=== PATIENT | female | born 1990 | race Caucasian/White ===

== ENCOUNTER 2022-08-18 20:23 | Observation (INO) | payer OTHER, SELFPAY ==
--- NOTE | ~2022-08-18 | CT_ITS ---
EXAMINATION: CT HEAD WITHOUT CONTRAST CLINICAL INFORMATION: Severe vertigo COMPARISON: None. TECHNIQUE: Contiguous axial imaging was performed from the skull base to vertex without intravenous contrast. This CT examination was performed using dose optimization techniques as appropriate, variously including the following: * Automated exposure control * Adjustment of mA and/or kV according to patient size (this includes techniques or standardized protocols for targeted exams where dose is matched to indication/reason for exam; i.e. extremities or head) Use of iterative reconstruction technique DLP: 564 mGy-cm. FINDINGS: There is no evidence of acute intracranial hemorrhage or territorial infarction. No abnormal mass effect or midline shift is seen. Su to white matter differentiation is well preserved. No extra-axial fluid collections are identified. No hydrocephalus. No significant volume loss. There is no abnormal attenuation within the brain parenchyma. The osseous structures and soft tissues are normal. The mastoid air cells and visualized portions of the paranasal sinuses are well aerated. CT/CT head/brain wo IV con IMPRESSION: No acute intracranial pathology.
--- NOTE | ~2022-08-18 | MR_ITS ---
EXAMINATION: MRI OF THE BRAIN WITHOUT CONTRAST CLINICAL INFORMATION: CVA. COMPARISON: CT scan of the head earlier 08/19/2022. TECHNIQUE: MRI of the brain was obtained using routine sequences without contrast. FINDINGS: No diffusion abnormalities are identified to suggest an acute or subacute infarct. No mass effect or midline shift is seen. The ventricles and sulci are normal in size. Brain parenchymal signal is unremarkable. No extra-axial fluid collections are seen. The brainstem and cerebellum are normal. No pathologic magnetic susceptibility artifact is identified on the gradient refocused acquisition. The craniovertebral junction, marrow signal, and midline structures are normal. The major intracranial flow-voids at the level of the [place] are preserved. The dural venous sinus flow-voids are maintained. There are small lymph nodes in the parotid glands bilaterally. The mastoid air cells and the paranasal sinuses are well-aerated. MR/MR head/brain wo con IMPRESSION: 1. There are no acute bleeds or infarcts. No masses are demonstrated. Brain parenchymal signal is unremarkable.
[2022-08-18 21:03] VITALS: BP 128/91; PULSE 77; RESP 16; TEMP 36.6; O2SAT 100; BMI 19.7
--- NOTE | 2022-08-18 21:11 | ECG_ITS ---
Test Reason : DIZZINESS Blood Pressure : / mmHG Vent. Rate : 060 BPM Atrial Rate : 060 BPM P-R Int : 150 ms QRS Dur : 072 ms QT Int : 454 ms P-R-T Axes : 048 043 036 degrees QTc Int : 454 ms Normal sinus rhythm with sinus arrhythmia Normal ECG No previous ECGs available Referred By: Clarissa Colón Electronically Signed By:Yang Fernandez
--- OUTSIDE RECORDS SUMMARY | 2022-08-18 21:28 | XMS_ITS | Continuity of Care Document ---
Author Name Unknown Organization [facility] Lucien lt Address [address] [place] [address]- Care Team Providers Care Foundry Worker Name Role Phone Lela BONUS CLERKTierra Primary Care Physician [facility] Date[facility]s): 02/20/22 - 03/22/22 [facility] Adult [address] [place] [address]- Allergies, Adverse Reactions, Alerts Substance Reaction Severity Status codeine Active sulfADIAZINE Active Vicodin ES Active Immunizations Given and Recorded Vaccine Date Status Refusal Reason SARS-CoV-2 (COVID-19) mRNA-1273 vaccine 09/13/20 R ecorded SARS-CoV-2 (COVID-19) mRNA-1273 vaccine 08/20/20 R ecorded SARS-CoV-2 (COVID-19) mRNA-1273 vaccine 08/16/20 R ecorded SARS-CoV-2 (COVID-19) mRNA-1273 vaccine 07/21/20 R ecorded tetanus-diphtheria toxoids (Td) 05/21/19 Given influenza virus vaccine, inactivated 05/08/19 Daniel rded influenza virus vaccine, inactivated 05/05/15 Daniel rded influenza virus vaccine, inactivated 1 05/20/13 Gi davis Influenza Virus Vaccine (oldterm) 05/07/19 Recorde d FluLaval (oldterm) 03/10/12 Given Varicella Virus Vaccine 11/19/08 Given Menactra (oldterm) 10/17/07 Given Tet/Diphth/Acel, Pertussis (oldterm) 10/17/07 Give n Gardasil (oldterm) 10/06/07 Given Gardasil (oldterm) 01/16/07 Given Gardasil (oldterm) 09/27/06 Given hepatitis B pediatric vaccine 09/24/02 Given hepatitis B pediatric vaccine 09/23/01 Given hepatitis B pediatric vaccine 01/31/00 Given Measles/Mumps/Rubella Virus Vaccine 01/31/00 Given Measles/Mumps/Rubella Virus Vaccine 02/23/91 Given 1Result Comment: [05/20/2013] ORDERED BY TIERRA VOGEL. BONUS CLERK Medications Adderall XR 25 mg oral capsule, extended release 1 capsule = 25 mg, By Mouth, Daily in AM, DX: F90.9, # 30 capsule, 0 Refills, Maintenance, 03/22/2210:02:00 EST, CR Capsule, [facility] #[id number], 1 capsule By Mouth Daily in AM,x30 days,Instr:DX: F90.9, 164, cm, 02/01/22 8:51:00 EDT, Height Start Date: 03/22/22 Stop Date: 04/21/22 Status: Ordered Adderall XR 25 mg oral capsule, extended release 1 capsule = 25 mg, By Mouth, Daily in AM, for 30 days, DX: F90.9, # 30 capsule, 0 Refills, Hard Stop 03/23/22 20:23:00 EST, 02/21/22 20:23:00 EDT, CR Capsule, [facility] #[id number], 164, cm, 02/01/22 8:51:00 EDT, Height Start Date: 02/21/22 Stop Date: 03/23/22 Status: Ordered EpiPen 2-Janusz 0.3 mg injectable kit = 0.3 mg, Intramuscular, Once, as instructed may repeat if necessary, # 1 each, 0 Refills, Soft Stop, 05/21/19 9:12:00 EST, [facility] #[id number], 164, cm, 05/21/19 8:55:00 EST, Height Start Date: 05/21/19 Status: Ordered Valtrex 1 gm oral tablet 1 tablet = 1 Gm, By Mouth, Daily, for 90 days, # 90 tablet, 0 Refills, Acute 04/21/22 7:14:00 EST, 01/21/22 7:14:00 EDT, Tablet, [facility] #[id number], 164, cm, 10/26/21 11:15:00 EDT, Height Start Date: 01/21/22 Stop Date: 04/21/22 Status: Ordered Valtrex 1 gm oral tablet 1 tablet = 1 Gm, By Mouth, Daily, for 90 days, # 90 tablet, 0 Refills, Acute 06/14/22 13:29:00 EST,03/16/22 13:29:00 EST, Tablet, [facility] #[id number], 164, cm, 02/01/22 8:51:00 EDT, Height Start Date: 03/16/22 Stop Date: 06/14/22 Status: Ordered Vitamin B12 1000 mcg oral tablet 1 tablet = 1,000 mcg, By Mouth, Daily, # 90 tablet, 1 Refills, Maintenance, 02/01/22 9:06:00 EDT, Tablet, [facility] #[id number], 164, cm, 02/01/22 8:51:00 EDT, Height Start Date: 02/01/22 Status: Ordered Problem List Condition Confirmation Course Effective Dates Status H ealth Status Informant ADHD 1, 2 Confirmed Active Vitamin B12 deficiency Confirmed Active Developmental Dyslexia 3 Confirmed Active H/O angioedema Confirmed Active Herpes labialis Confirmed Active Lymphocytosis since 2010 Confirmed Active 1well documented pediatric chart 2dyslexia 3per pediatricain Social History Social History Type Response Smoking Status Never smoker entered on: 05/20/13 Sex Patient Care team information Care Team Personnel Name: Tierra Vogel NP Position: [facility] PCO Associate Professional Member Role: PCP Address: Address: [address] [place] [address]- Care Team Related Persons Name: HELEN NOBLES Address: home [address] [place] [address] Name: DRAGAN AMARO Address: home [address] [place] [address]
--- OUTSIDE RECORDS SUMMARY | 2022-08-18 21:28 | XMS_ITS | Continuity of Care Document ---
Author Name Unknown Organization [facility] Adult Address [address] [place] [address]- Care Team Providers Care Tip Length Checker Name Role Phone Lela Tierra FARRELL Primary Care Physician [facility] Date(s): 05/09/22 - 06/08/22 [facility] Adult [address] [place] [address]- Allergies, Adverse Reactions, Alerts Substance Reaction Severity [...] 1Result Comment: [05/20/2013] ORDERED BY TIERRA VOGEL. JOB COACH Medications Adderall XR 25 mg oral capsule, extended release 1 capsule = 25 mg, By Mouth, Daily in AM, DX: F90.9, # 30 capsule, 0 Refills, Maintenance, 05/21/2314:59:00 EST, CR Capsule, [facility] #[id number], 1 capsule By Mouth Daily in AM,x30 days,Instr:DX: F90.9, 164, cm, 02/01/22 8:51:00 EDT, Height Start Date: 05/21/22 Stop Date: 06/20/22 Status: Ordered EpiPen 2-Janusz 0.3 mg injectable kit = 0.3 mg, Intramuscular, Once, as instructed may repeat if necessary, # 1 each, 0 Refills, Soft Stop, 05/21/19 9:12:00 EST, [facility] #[id number], 164, cm, 05/21/19 8:55:00 EST, Height Start Date: 05/21/19 Status: Ordered Valtrex 1 gm oral tablet 1 tablet = 1 Gm, By Mouth, Daily, for 90 days, # 90 tablet, 0 Refills, Acute 06/14/22 13:29:00 EST,03/16/22 13:29:00 EST, Tablet, [facility] #[id number], 164, cm, 02/01/22 8:51:00 EDT, Height Start Date: 03/16/22 Stop Date: 06/14/22 Status: Ordered Vitamin B12 1000 mcg oral tablet 1 tablet = 1,000 mcg, By Mouth, Daily, # 90 tablet, 1 Refills, Maintenance, 05/15/22 10:58:00 EST, Tablet, [facility] #[id number], 164, cm, 02/01/22 8:51:00 EDT, Height Start Date: 05/15/22 Status: Ordered Problem List Condition Confirmation Course [...] Team Personnel Name: Tierra Vogel NP Position: [facility] PCO Associate Professional Member Role: PCP Address: Address: [address] [place] [address]- Care Team Related Persons Name: HELEN NOBLES Address: home [address] [place] [address] Name: DRAGAN AMARO Address: home [address] [place] [address]
--- OUTSIDE RECORDS SUMMARY | 2022-08-18 21:28 | XMS_ITS | Continuity of Care Document ---
Author Name Unknown Organization [facility] Address [address] [place] [address]- Care Team Providers Care Manager Call Name Role Phone Rafael PALACIO, Arik Santiago Primary Care Physician Encounter [facility] Date(s): 04/28/20 - 08/26/20 [facility] [address] [place] [address]- Attending Physician: Farheen Faustin Admitting Physician: Farheen Faustin Allergies, Adverse Reactions, Alerts Substance Reaction Severity Status codeine Active sulfADIAZINE Active Vicodin ES Active Immunizations Given and Recorded Vaccine Date Status Refusal Reason SARS-CoV-2 (COVID-19) mRNA-1273 vaccine 08/16/20 R ecorded tetanus-diphtheria toxoids (Td) 05/21/19 Given Influenza Virus Vaccine (oldterm) 05/07/19 Recorde d influenza virus vaccine, inactivated 05/05/15 Daniel rded influenza virus vaccine, inactivated 1 05/20/13 Gi davis FluLaval (oldterm) 03/10/12 Given Varicella Virus Vaccine [...] 02/23/91 Given 1Result Comment: [05/20/2013] ORDERED BY SIOBHAN JORGE. EQUIPMENT PROCESSER STORAGE Medications Adderall XR 25 mg oral capsule, extended release 1 capsule = 25 mg, By Mouth, Daily in AM, DX: F90.9, # 30 capsule, 0 Refills, Maintenance, 08/24/2116:54:00 EDT, CR Capsule, [facility] #[id number], 1 capsule By Mouth Daily in AM,x30 days,Instr:DX: F90.9, 08/25/20, 164, cm, 07/27/20 7:11:00 EDT... Start Date: 08/24/20 Stop Date: 09/23/20 Status: Ordered EpiPen 2-Janusz 0.3 mg injectable kit = 0.3 mg, Intramuscular, Once, as instructed may repeat if necessary, # 1 each, 0 Refills, Soft Stop, 05/21/19 9:12:00 EST, [facility] #[id number], 164, cm, 05/21/19 8:55:00 EST, Height Start Date: 05/21/19 Status: Ordered Problem List Condition Effective Dates Status Health Status Inform ant ADHD(Confirmed) 1, 2 Active Developmental Dyslexia(Confirmed) 3 Active H/O angioedema(Confirmed) Active Lymphocytosis since 2010(Confirmed) Active 1well documented pediatric chart 2dyslexia 3per pediatricain Social History Social History Type Response Smoking Status Never smoker entered on: 05/20/13 Sex
--- OUTSIDE RECORDS SUMMARY | 2022-08-18 21:28 | XMS_ITS | Continuity of Care Document ---
Author Name Unknown Organization [facility] Lucien Address [address] [place] [address]- Care Team Providers Care Flatbed Company Driver Name Role Phone Rafael PALACIO, Arik Santiago Primary Care Physician [facility] Date(s): 11/08/21 - 12/08/21 [facility] Adult [address] [place] [address]- Allergies, Adverse Reactions, Alerts Substance Reaction Severity [...] 1Result Comment: [05/20/2013] ORDERED BY SIOBHAN JORGE. HOT BOX OPERATOR Medications Adderall XR 25 mg oral capsule, extended release 1 capsule = 25 mg, By Mouth, Daily in AM, DX: F90.9, # 30 capsule, 0 Refills, Maintenance, 11/28/2211:00:00 EDT, CR Capsule, [facility] #[id number], 1 capsule By Mouth Daily in AM,x30 days,Instr:DX: F90.9, 164, cm, 10/26/21 11:15:00 EDT, Height Start Date: 11/27/21 Stop Date: 12/27/21 Status: Ordered EpiPen 2-Janusz 0.3 mg injectable kit = 0.3 mg, Intramuscular, Once, as instructed may repeat if necessary, # 1 each, 0 Refills, Soft Stop, 05/21/19 9:12:00 EST, [facility] #[id number], 164, cm, 05/21/19 8:55:00 EST, Height Start Date: 05/21/19 Status: Ordered Byron-3 Fish Oil = 1,000 mg, By Mouth, Daily, 0 Refills, Maintenance, 07/28/21 7:19:00 EDT Start Date: 07/28/21 Status: Ordered Valtrex 1 gm oral tablet 1 tablet = 1 Gm, By Mouth, Daily, for 90 days, # 90 tablet, 0 Refills, Acute 01/21/22 7:14:00 EDT, 10/23/21 7:14:00 EDT, Tablet, [facility] #[id number], 164, cm, 07/28/21 7:07:00 EDT, Height Start Date: 10/23/21 Stop Date: 01/21/22 Status: Ordered Zinc = 140 mg, By Mouth, Daily, 0 Refills, Maintenance, 07/28/21 7:19:00 EDT Start Date: 07/28/21 Status: Ordered Problem List Condition Effective Dates Status Health Status Inform ant ADHD(Confirmed) 1, 2 Active Vitamin B12 deficiency(Confirmed) Active Developmental Dyslexia(Confirmed) 3 Active H/O angioedema(Confirmed) Active Herpes labialis(Confirmed) Active Lymphocytosis since 2010(Confirmed) Active 1well documented pediatric chart 2dyslexia 3per pediatricain Social History Social History Type Response Smoking Status Never smoker entered on: 05/20/13 Sex
--- OUTSIDE RECORDS SUMMARY | 2022-08-18 21:28 | XMS_ITS | Continuity of Care Document ---
Author Name Unknown Organization [facility] Lucien lt Address [address] [place] [address]- Care Team Providers Care Clerk Operator Name Role Phone Rafael PALACIO, Arik Santiago Primary Care Physician [facility] Date(s): 01/16/21 - 01/23/21 [facility] Adult [address] [place] [address]- Attending Physician: Lela WELDING MACHINE OPERATOR ARC, Tierra Knowles Allergies, Adverse Reactions, Alerts Substance Reaction Severity Status codeine Active sulfADIAZINE Active Vicodin ES Active Immunizations Given and Recorded Vaccine Date Status Refusal Reason SARS-CoV-2 (COVID-19) mRNA-1273 vaccine 09/13/20 R ecorded SARS-CoV-2 (COVID-19) mRNA-1273 vaccine 08/16/20 [...] Given 1Result Comment: [05/20/2013] ORDERED BY TIERRA JORGE. WELDING MACHINE OPERATOR ARC Medications Adderall XR 25 mg oral capsule, extended release 1 capsule = 25 mg, By Mouth, Daily in AM, DX: F90.9, # 30 capsule, 0 Refills, Maintenance, 217:31:00 EDT, CR Capsule, [facility] #[id number], 1 capsule By Mouth Daily in AM,x30 days,Instr:DX: F90.9, 01/09/21, 164, cm, 07/27/20 7:11:00 EDT,... Start Date: 01/05/21 Stop Date: 02/04/21 Status: Ordered EpiPen 2-Janusz 0.3 mg injectable kit = 0.3 mg, Intramuscular, Once, as instructed may repeat if necessary, # 1 each, 0 Refills, Soft Stop, 05/21/19 9:12:00 EST, [facility] #[id number], 164, cm, 05/21/19 8:55:00 EST, Height Start Date: 05/21/19 Status: Ordered Vitamin B12 1000 mcg oral tablet 1 tablet = 1,000 mcg, By Mouth, Daily, # 90 tablet, 1 Refills, Maintenance, 01/17/21 13:16:00 EDT, Tablet, [facility] #[id number], Partial fill upon patient request if the prescription is for a schedule II opioid drug., 164, cm, 01/16/21 9:54:00... Start Date: 01/17/21 Status: Ordered Problem List Condition Effective Dates Status Health Status Inform ant ADHD(Confirmed) 1, 2 Active Developmental Dyslexia(Confirmed) 3 Active H/O angioedema(Confirmed) Active Herpes labialis(Confirmed) Active Lymphocytosis since 2010(Confirmed) Active 1well documented pediatric chart 2dyslexia 3per pediatricain Vital Signs Most recent to oldest [Reference Range]: 1 Height 164.00 cm (01/16/21 9:54 AM) Weight 53.0 kg (01/16/21 9:54 AM) Oxygen Saturation [94-100 %] 98 % (01/16/21 9:54 AM) Pulse Rate [55-90 bpm] 93 bpm *H* (01/16/21 9:54 AM) Body Mass Index [18.5-24.99] 19.71 (01/16/21 9:54 AM) Blood Pressure [90-138/55-84 mm Hg] 116/ 70mm Hg (01/16/21 9:54 AM) Respiratory Rate [16-30 br/min] 18 br/mi n (01/16/21 9:54 AM) Temperature [96.8-100.4 DegF] 98.6 DegF (01/16/21 9:54 AM) Mode of Delivery (Oxygen) Room air (01/16/21 9:54 AM) Blood pressure sites Arm, right (01/16/21 9:54 AM) Temperature Route Oral (01/16/21 9:54 AM) Weight Obtained Via Standing scale (01/16/21 9:54 AM) Social History Social History Type Response Smoking Status Never smoker entered on: 05/20/13 Sex
--- OUTSIDE RECORDS SUMMARY | 2022-08-18 21:28 | XMS_ITS | Continuity of Care Document ---
Author Name Unknown Organization [facility] Lucien lt Address [address] [place] [address]- Care Team Providers Care Manager Pharmaceutical Name Role Phone Rafael PALACIO, Arik Santiago Primary Care Physician Encounter [facility] Date(s): 01/11/21 - 02/10/21 [facility] Adult [address] [place] [address]- Allergies, Adverse Reactions, Alerts Substance Reaction Severity [...] 1Result Comment: [05/20/2013] ORDERED BY SIOBHAN JORGE. FILTER BED PLACER Medications Adderall XR 25 mg oral capsule, extended release 1 capsule = 25 mg, By Mouth, Daily in AM, DX: F90.9, # 30 capsule, 0 Refills, Maintenance, 219:10:00 EDT, CR Capsule, [facility] #[id number], 1 capsule By Mouth Daily in AM,x30 days,Instr:DX: F90.9, 02/08/21, 164, cm, 01/26/21 7:05:00 EDT,... Start Date: 02/06/21 Stop Date: 03/08/21 Status: Ordered EpiPen 2-Janusz 0.3 mg injectable kit = 0.3 mg, Intramuscular, Once, as instructed may repeat if necessary, # 1 each, 0 Refills, Soft Stop, 05/21/19 9:12:00 EST, [facility] #[id number], 164, cm, 05/21/19 8:55:00 EST, Height Start Date: 05/21/19 Status: Ordered Valtrex 1 gm oral tablet 1 tablet = 1 Gm, By Mouth, Daily, for 90 days, # 90 tablet, 0 Refills, Acute 04/26/21 7:14:00 EST, 01/26/21 7:14:00 EDT, Tablet, [facility] #[id number], 164, cm, 01/26/21 7:05:00 EDT, Height Start Date: 01/26/21 Stop Date: 04/26/21 Status: Ordered Vitamin B12 1000 mcg oral tablet 1 tablet = 1,000 mcg, By Mouth, Daily, # 90 tablet, 1 Refills, Maintenance, 01/17/21 13:16:00 EDT, Tablet, [facility] #[id number], Partial fill upon patient request if the [...]
--- OUTSIDE RECORDS SUMMARY | 2022-08-18 21:28 | XMS_ITS | Continuity of Care Document ---
Author Name Unknown Organization [facility] Lucien lt Address [address] [place] [address]- Care Team Providers Care Inspector Aluminum Boat Name Role Phone Rafael PALACIO, Arik Santiago Primary Care Physician [phone] [place] [id number] Date(s): 01/07/20 - 01/14/20 [facility] Adult [address] [place] [address]- [facility] Attending Physician: Wilbert FARRELL, Radha Morales Allergies, Adverse Reactions, Alerts Substance Reaction Severity Status codeine Active sulfADIAZINE Active Vicodin ES Active Immunizations Given and Recorded Vaccine Date Status Refusal Reason tetanus-diphtheria toxoids (Td) 05/21/19 Given Influenza Virus [...] 1Result Comment: [05/20/2013] ORDERED BY SIOBHAN JORGE. CORPORATE EVENTS DIRECTOR Medications Adderall XR 25 mg oral capsule, extended release 1 capsule = 25 mg, By Mouth, Daily in AM, DX: F90.9, # 30 capsule, 0 Refills, Maintenance, 12/22/2009:23:00 EDT, CR Capsule, [facility] #[id number], 1 capsule By Mouth Daily in AM,x30 days,Instr:DX: F90.9, 12/25/19, 164, cm, 10/14/19 8:21:00 EDT... Start Date: 12/23/19 Stop Date: 01/22/20 Status: Ordered EpiPen 2-Janusz 0.3 mg injectable kit See Instructions, Intramuscular Once may repeat if necessary, # 1 Doses, 0 Refills, Soft Stop, 10/15/16 16:38:24 Start Date: 10/15/16 Status: Ordered EpiPen 2-Janusz 0.3 mg injectable kit = 0.3 mg, Intramuscular, Once, as instructed may repeat if necessary, # 1 each, 0 Refills, Soft Stop, 05/21/19 9:12:00 EST, [facility] #[id number], 164, cm, 05/21/19 8:55:00 EST, Height Start Date: 05/21/19 Status: Ordered Problem List Condition Effective Dates Status Health Status Inform ant ADHD(Confirmed) 1, 2 Active Developmental Dyslexia(Confirmed) 3 Active H/O angioedema(Confirmed) Active Lymphocytosis since 2010(Confirmed) Active 1well documented pediatric chart 2dyslexia 3per pediatricain Vital Signs Most recent to oldest [Reference Range]: 1 Height 164.00 cm (01/07/20 9:44 AM) Weight 52.5 kg (01/07/20 9:44 AM) Oxygen Saturation [94-100 %] 99 % (01/07/20 9:44 AM) Pulse Rate [55-90 bpm] 87 bpm (01/07/20 9:44 AM) Body Mass Index [18.5-24.99] 19.52 (01/07/20 9:44 AM) Blood Pressure [90-138/55-84 mm Hg] 108/ 62mm Hg (01/07/20 9:44 AM) Respiratory Rate [16-30 br/min] 16 br/mi n (01/07/20 9:44 AM) Temperature [96.8-100.4 DegF] 98.0 DegF (01/07/20 9:44 AM) Mode of Delivery (Oxygen) Room air (01/07/20 9:44 AM) Blood pressure sites Arm, right (01/07/20 9:44 AM) Temperature Route Oral (01/07/20 9:44 AM) Weight Obtained Via Standing scale (01/07/20 9:44 AM) Social History Social History Type Response Smoking Status Never smoker entered on: 05/20/13 Sex
--- OUTSIDE RECORDS SUMMARY | 2022-08-18 21:28 | XMS_ITS | Continuity of Care Document ---
Author Name Unknown Organization [facility] Address [address] [place] [address]- Care Team Providers Care Steel Tester Name Role Phone Lela FEATHER TRIMMERTierra Primary Care Physician [phone] Encounter [facility] Date(s): 02/01/22 - 03/03/22 [facility] Adult [address] [place] [address]- Attending Physician: Admtr, Ar8 Admitting Physician: Admtr, Ar8 Referring Physician: Admtr, Ar8 Allergies, Adverse Reactions, Alerts Substance Reaction Severity [...] 1Result Comment: [05/20/2013] ORDERED BY TIERRA VOGEL. FEATHER TRIMMER Medications Adderall XR 25 mg oral capsule, extended release 1 capsule = 25 mg, By Mouth, Daily in AM, DX: F90.9, # 30 capsule, 0 Refills, Maintenance, 02/22/2220:23:00 EDT, CR Capsule, [facility] #[id number], 1 capsule By Mouth Daily in AM,x30 days,Instr:DX: F90.9, 164, cm, 02/01/22 8:51:00 EDT, Height Start Date: 02/21/22 Stop Date: 03/23/22 Status: Ordered EpiPen 2-Janusz 0.3 mg injectable kit = 0.3 mg, Intramuscular, Once, as instructed may repeat if necessary, # 1 each, 0 Refills, Soft Stop, 05/21/19 9:12:00 EST, [facility] #[id number], 164, cm, 05/21/19 8:55:00 EST, Height Start Date: 05/21/19 Status: Ordered Valtrex 1 gm oral tablet 1 tablet = 1 Gm, By Mouth, Daily, for 90 days, # 90 tablet, 0 Refills, Acute 04/21/22 7:14:00 EST, 01/21/22 7:14:00 EDT, Tablet, [facility] #[id number], 164, cm, 10/26/21 11:15:00 EDT, Height Start Date: 01/21/22 Stop Date: 04/21/22 Status: Ordered Vitamin B12 1000 mcg oral tablet 1 tablet = 1,000 mcg, By Mouth, Daily, # 90 tablet, 1 Refills, Maintenance, 02/01/22 9:06:00 EDT, Tablet, [facility] #[id number], 164, cm, 02/01/22 8:51:00 EDT, Height Start Date: 02/01/22 Status: Ordered Problem List Condition Confirmation Course Effective Dates Status H ealth Status Informant ADHD 1, 2 Confirmed Active Vitamin B12 deficiency Confirmed Active Developmental Dyslexia 3 Confirmed Active H/O angioedema Confirmed Active Herpes labialis Confirmed Active Lymphocytosis since 2010 Confirmed Active 1well documented pediatric chart 2dyslexia 3per pediatricain Procedures Procedure Date Related Diagnosis Body Site Status CT of abdomen and pelvis- he matoma right buttocks 1 03/04/19 Completed Reference (Outside) Laboratory 2 03/04/19 Completed 18.7x2.8x6.6cm lobular density in the subcutaneou fat of right buttocks consistent with hematoma 2WBC 4.3, RBC 4.15, hgb 13.9, hct 38.6, plt 315, NA 141, K 4.3, gluc 65, BUN 13, creat 0.76, neg hcg Social History Social History Type Response Smoking Status Never smoker entered on: 05/20/13 Sex Note * Event Display: Non Lab Results Authored Date: Patient Care team information Care Team Personnel Name: Tierra Vogel NP Position: [facility] PCO Associate Professional Member Role: PCP Address: Address: [address] [place] [address]- Care Team Related Persons Name: HELEN NOBLES Address: home [address] [place] [address] Name: DRAGAN AMARO Address: home [address] [place] [address]
--- OUTSIDE RECORDS SUMMARY | 2022-08-18 21:28 | XMS_ITS | Continuity of Care Document ---
Author Name Unknown Organization [facility] Luc[facility] lt Address [address] [place] [address]- Care Team Providers Care Postulant Name Role Phone Lela HOUSE CLEANERTierra Primary Care Physician [facility] Date(s): 03/22/22 - 04/21/22 [facility] Adult [address] [place] [address]- Allergies, Adverse Reactions, Alerts Substance Reaction Severity [...] 1Result Comment: [05/20/2013] ORDERED BY TIERRA VOGEL. HOUSE CLEANER Medications Adderall XR 25 mg oral capsule, extended release 1 capsule = 25 mg, By Mouth, Daily in AM, DX: F90.9, # 30 capsule, 0 Refills, Maintenance, 03/22/2210:02:00 EST, CR Capsule, [facility] #[id number], 1 capsule By Mouth Daily in AM,x30 days,Instr:DX: F90.9, 164, cm, 02/01/22 8:51:00 EDT, Height Start Date: 03/22/22 Stop Date: 04/21/22 Status: Ordered EpiPen 2-Janusz 0.3 mg injectable kit = 0.3 mg, Intramuscular, Once, as instructed may repeat if necessary, # 1 each, 0 Refills, Soft Stop, 05/21/19 9:12:00 EST, [facility] #[id number], 164, cm, 05/21/19 8:55:00 EST, Height Start Date: 05/21/19 Status: Ordered Valtrex 1 gm oral tablet 1 tablet = 1 Gm, By Mouth, Daily, for 90 days, # 90 tablet, 0 Refills, Acute 06/14/22 13:29:00 EST,03/16/22 13:29:00 EST, Tablet, [facility] #[id number], 164, cm, 02/01/22 8:51:00 EDT, Height Start Date: 03/16/22 Stop Date: 06/14/22 Status: Ordered Vitamin B12 1000 mcg oral tablet 1 tablet = 1,000 mcg, By Mouth, Daily, # 90 tablet, 1 Refills, Maintenance, 02/01/22 9:06:00 EDT, Tablet, [facility] #[id number], 164, cm, 02/01/22 8:51:00 EDT, Height Start [...] Associate Professional Member Role: PCP Address: Address: [address] [place] [address]- [place] Care Team Related Persons Name: HELEN NOBLES Address: home [address] [place] [address] Name: DRAGAN AMARO Address: home [address] [place] [address]
--- OUTSIDE RECORDS SUMMARY | 2022-08-18 21:29 | XMS_ITS | Continuity of Care Document ---
Author Name Unknown Organization [facility] Lucien lt Address [address] [place] [id number]- Care Team Providers Care Refinery Operator Alkylation Name Role Phone Rafael PALACIO, Arik Santiago Primary Care Physician [phone] [place] [facility] [place] 02[place]11/20 [facility] Adult [address] [place] [address]- [place] Encounter Diagnosis Mouth sores(Discharge Diagnosis) - 02/04/20 Stye(Discharge Diagnosis) - 02/04/20 Attending Physician: Coreen Saravia NP Referring Physician: Rafael PALACIO, Arik Santiago Allergies, Adverse Reactions, Alerts Substance Reaction Severity [...] Virus Vaccine 01/31/00 Given Measles/Mumps/Rubella Virus Vaccine 11/4/91 Given 1Result Comment: [05/20/2013] ORDERED BY SIOBHAN JORGE. COMPUTER SALESPERSON RETAIL Medications Adderall XR 25 mg oral capsule, extended release 1 capsule = 25 mg, By Mouth, Daily in AM, DX: F90.9, # 30 capsule, 0 Refills, Maintenance, 01/19/2014:06:00 EDT, CR Capsule, [id number], 1 capsule By Mouth Daily in AM,x30 days,Instr:DX: F90.9, 01/24/20, 164, cm, 01/07/20 9:44:00 EDT, Height Start Date: 01/20/20 Stop Date: 02/19/20 Status: Ordered EpiPen 2-Janusz 0.3 mg injectable kit See Instructions, Intramuscular Once may repeat if necessary, # 1 Doses, 0 Refills, Soft Stop, 10/15/16 16:38:24 Start Date: 10/15/16 Status: Ordered EpiPen 2-Janusz 0.3 mg injectable kit = 0.3 mg, Intramuscular, Once, as instructed may repeat if necessary, # 1 each, 0 Refills, Soft Stop, 05/21/19 9:12:00 EST, [facility] #[id number], 164, cm, 05/21/19 8:55:00 EST, Height Start Date: 05/21/19 Status: Ordered Problem List Condition Effective Dates Status Health Status Inform ant ADHD(Confirmed) 1, 2 Active Developmental Dyslexia(Confirmed) 3 Active H/O angioedema(Confirmed) Active Lymphocytosis since 2010(Confirmed) Active 1well documented pediatric chart 2dyslexia 3per pediatricain Diagnosis Diagnosis Type Effective Dates Health Status Clini jessica Service Informant Mouth sores Discharge Diagnosis 02/04/20 Stye Discharge Diagnosis 02/04/20 Vital Signs Most recent to oldest [Reference Range]: 1 Height 164.00 cm (02/04/20 9:18 AM) Social History Social History Type Response Smoking Status Never smoker entered on: 05/20/13 Sex
--- OUTSIDE RECORDS SUMMARY | 2022-08-18 21:29 | XMS_ITS | Continuity of Care Document ---
Author Name Unknown Organization [facility] Lucien lt Address [address] [place] [address]- Care Team Providers Care Bush And Vine Farmer Fruit Crops Name Role Phone Lela Tierra FARRELL Primary Care Physician [phone] Encounter [facility] Date(s): 04/19/22 - 05/19/22 [facility] Adult [address] [place] [address]- Allergies, Adverse Reactions, Alerts Substance Reaction Severity [...] 1Result Comment: [05/20/2013] ORDERED BY TIERRA VOGEL. SENIOR IT ENGINEER Medications Adderall XR 25 mg oral capsule, extended release 1 capsule = 25 mg, By Mouth, Daily in AM, DX: F90.9, # 30 capsule, 0 Refills, Maintenance, 04/24/2311:31:00 EST, CR Capsule, [facility] #[id number], 1 capsule By Mouth Daily in AM,x30 days,Instr:DX: F90.9, 164, cm, 02/01/22 8:51:00 EDT, Height Start Date: 04/24/22 Stop Date: 05/24/22 Status: Ordered EpiPen 2-Janusz 0.3 mg injectable kit = 0.3 mg, Intramuscular, Once, as instructed may repeat if necessary, # 1 each, 0 Refills, Soft Stop, 05/21/19 9:12:00 EST, [facility] #[id number], 164, cm, 05/21/19 8:55:00 EST, Height Start Date: 05/21/19 Status: Ordered Valtrex 1 gm oral tablet 1 tablet = 1 Gm, By Mouth, Daily, for 90 days, # 90 tablet, 0 Refills, Acute 06/14/22 13:29:00 EST,03/16/22 13:29:00 EST, Tablet, [facility] #[id number], 164, cm, 02/01/22 8:51:00 EDT, Height Start Date: 03/16/22 Stop Date: 06/14/22 Status: Ordered Vitamin B12 1000 mcg oral tablet 1 tablet = 1,000 mcg, By Mouth, Daily, # 90 tablet, 1 Refills, Maintenance, 05/15/22 10:58:00 EST, Tablet, [facility] #[id number], 164, cm, 02/01/22 8:51:00 EDT, Height Start [...] Associate Professional Member Role: PCP Address: Address: [address] [place] [address]- Care Team Related Persons Name: HELEN NOBLES Address: home [address] [place] [address] Name: DRAGAN AMARO Address: home [address] [place] [address]
--- OUTSIDE RECORDS SUMMARY | 2022-08-18 21:29 | XMS_ITS | Continuity of Care Document ---
Author Name Unknown Organization [facility] Primary Car e Jeffers Address [address] [place] [address]- Care Team Providers Care Toll Patrolman Name Role Phone Rafael PALACIO, Arik Santiago Primary Care Physician [phone] [facility] Date(s): 07/17/21 - 08/16/21 [facility] [address] [place] [address]- Allergies, Adverse Reactions, Alerts Substance Reaction Severity [...] 1Result Comment: [05/20/2013] ORDERED BY SIOBHAN JORGE. TOURIST INFORMATION ASSISTANT Medications Adderall XR 25 mg oral capsule, extended release 1 capsule = 25 mg, By Mouth, Daily in AM, DX: F90.9, # 30 capsule, 0 Refills, Maintenance, :57:00 EDT, CR Capsule, [facility] #[id number], 1 capsule By Mouth Daily in AM,x30 days,Instr:DX: F90.9, 164, cm, 01/26/21 7:05:00 EDT, Height Start Date: 08/02/21 Stop Date: 09/01/21 Status: Ordered EpiPen 2-Janusz 0.3 mg injectable kit = 0.3 mg, Intramuscular, Once, as instructed may repeat if necessary, # 1 each, 0 Refills, Soft Stop, 05/21/19 9:12:00 EST, [facility] #[id number], 164, cm, 05/21/19 8:55:00 EST, Height Start Date: 05/21/19 Status: Ordered erythromycin 0.5% ophthalmic ointment 0.5 inches, Eye, Left, 4 times a day, for 5 days, follow-up with your eye doctor if not better in 5days, # 3.5 Gm, 0 Refills, Acute 08/20/21 14:17:00 EDT, 08/15/21 14:17:00 EDT, Ophth Ointment, [facility] #[id number], 0.5 inches Eye, Left 4 time... Start Date: 08/15/21 Stop Date: 08/20/21 Status: Ordered [place]-3 Fish Oil = 1,000 mg, By Mouth, Daily, 0 Refills, Maintenance, 07/28/21 7:19:00 EDT Start Date: 07/28/21 Status: Ordered Valtrex 1 gm oral tablet 1 tablet = 1 Gm, By Mouth, Daily, for 90 days, # 90 tablet, 0 Refills, Acute 10/23/21 7:14:00 EDT, 07/25/21 7:14:00 EDT, Tablet, [facility] #[id number], 164, cm, 01/26/21 7:05:00 EDT, Height Start Date: 07/25/21 Stop Date: 10/23/21 Status: Ordered Zinc = 140 mg, By [...]
--- OUTSIDE RECORDS SUMMARY | 2022-08-18 21:29 | XMS_ITS | Continuity of Care Document ---
Author Name Unknown Organization [facility] Lucien Address [address] [place] [address]- Care Team Providers Care Oceanographer Geological Name Role Phone Rafael PALACIO, Arik Santiago Primary Care Physician Encounter [facility] Date(s): 06/16/21 - 07/16/21 [facility] Adult [address] [place] [address]- Allergies, Adverse Reactions, Alerts Substance Reaction Severity [...] 1Result Comment: [05/20/2013] ORDERED BY SIOBHAN JORGE. WORKERS COMPENSATION CLAIMS SPECIALIST Medications Adderall XR 25 mg oral capsule, extended release 1 capsule = 25 mg, By Mouth, Daily in AM, DX: F90.9, # 30 capsule, 0 Refills, Maintenance, 229:57:00 EDT, CR Capsule, [facility] #[id number], 1 capsule By Mouth Daily in AM,x30 days,Instr:DX: F90.9, 164, cm, 01/26/21 7:05:00 EDT, Height Start Date: 07/03/21 Stop Date: 08/02/21 Status: Ordered EpiPen 2-Janusz 0.3 mg injectable kit = 0.3 mg, Intramuscular, Once, as instructed may repeat if necessary, # 1 each, 0 Refills, Soft Stop, 05/21/19 9:12:00 EST, [facility] #[id number], 164, cm, 05/21/19 8:55:00 EST, Height Start Date: 05/21/19 Status: Ordered fluconazole 150 mg oral tablet 1 tablet = 150 mg, By Mouth, Once, # 1 tablet, 0 Refills, Soft Stop, 06/16/21 10:04:00 EST, [facility] #[id number], Partial fill upon patient request if the prescription is for a schedule II opioid drug., 164, cm, 01/26/21 7:05:00 EDT, He... Start Date: 06/16/21 Status: Ordered Valtrex 1 gm oral tablet 1 tablet = 1 Gm, By Mouth, Daily, for 90 days, # 90 tablet, 0 Refills, Acute 07/25/21 7:14:00 EDT, 04/26/21 7:14:00 EST, Tablet, [facility] #[id number], 164, cm, 01/26/21 7:05:00 EDT, Height Start Date: 04/26/21 Stop Date: 07/25/21 Status: Ordered Valtrex 1 gm oral tablet 1 tablet = 1 Gm, By Mouth, Daily, for 90 days, # 90 tablet, 0 Refills, Acute 10/23/21 7:14:00 EDT, 07/25/21 7:14:00 EDT, Tablet, [facility] #[id number], 164, cm, 01/26/21 7:05:00 EDT, Height Start Date: 07/25/21 Stop Date: 10/23/21 Status: Ordered Vitamin B12 1000 mcg oral tablet 1 tablet = 1,000 mcg, By Mouth, Daily, # 90 tablet, 1 Refills, Maintenance, 01/17/21 13:16:00 EDT, Tablet, [facility] #[id number], Partial fill upon patient request if the [...]
--- OUTSIDE RECORDS SUMMARY | 2022-08-18 21:29 | XMS_ITS | Continuity of Care Document ---
Author Name Unknown Organization [facility] Lucien lt Address [address] [place] [address]- Care Team Providers Care Rod Greaser Name Role Phone Rafael PALACIO, Arik Santiago Primary Care Physician En[place] [facility] [place] Date(s): 01/26/21 - 02/02/21 [facility] Adult [address] [place] [address]- Encounter Diagnosis ADHD(Discharge Diagnosis) - 01/26/21 Herpes labialis(Discharge Diagnosis) - 01/26/21 Vitamin B12 deficiency(Discharge Diagnosis) - 01/26/21 Attending Physician: Lela FARRELL, Tierra Knowles Allergies, Adverse Reactions, Alerts Substance [...] Given Gardasil (oldterm) 01/16/07 Given Gardasil (oldterm) 6/8/07 Given hepatitis B pediatric vaccine 09/24/02 Given hepatitis B pediatric vaccine 09/23/01 Given hepatitis B pediatric vaccine 01/31/00 Given Measles/Mumps/Rubella Virus Vaccine 01/31/00 Given Measles/Mumps/Rubella Virus Vaccine 02/23/91 Given 1Result Comment: [05/20/2013] ORDERED BY TIERRA JORGE. INTERVENTIONAL CARDIOLOGIST Medications Adderall XR 25 mg oral capsule, extended release 1 capsule = 25 mg, By Mouth, Daily in AM, DX: F90.9, # 30 capsule, 0 Refills, Maintenance, :31:00 EDT, CR Capsule, [facility] #[id number], 1 capsule By Mouth Daily in AM,x30 days,Instr:DX: F90.9, 01/09/21, 164, cm, 07/27/20 7:11:00 EDT,... Start Date: 01/05/21 Stop Date: 02/04/21 Status: Ordered EpiPen 2-Janusz 0.3 mg injectable kit = 0.3 mg, Intramuscular, Once, as instructed may repeat if necessary, # 1 each, 0 Refills, Soft Stop, 05/21/19 9:12:00 EST, [facility] #[id number], 164, cm, 05/21/19 8:55:00 EST, Height Start Date: 05/21/19 Status: Ordered Valtrex 1 gm oral tablet 1 tablet = 1 Gm, By Mouth, Daily, for 90 days, # 90 tablet, 0 Refills, Acute 04/26/21 7:14:00 EST, 01/26/21 7:14:00 EDT, Tablet, [facility] #[id number], 164, cm, 01/26/21 7:05:00 EDT, Height Start Date: 01/26/21 Stop Date: 04/26/21 Status: Ordered Vitamin B12 1000 mcg oral tablet 1 tablet = 1,000 mcg, By Mouth, Daily, # 90 tablet, 1 Refills, Maintenance, 01/17/21 13:16:00 EDT, Tablet, [facility] #[id number], Partial fill upon patient request if the [...] Diagnosis Diagnosis Type Effective Dates Health Status Clinical Service Informant ADHD Discharge Diagnosis 01/26/21 Herpes labialis Discharge Diagnosis 01/26/21 Vitamin B12 deficiency Discharge Diagnosis 01/26/21 Vital Signs Most recent to oldest [Reference Range]: 1 Height 164.00 cm (01/26/21 7:05 AM) Weight 54.6 kg (01/26/21 7:05 AM) Oxygen Saturation [94-100 %] 99 % (01/26/21 7:05 AM) Pulse Rate [55-90 bpm] 85 bpm (01/26/21 7:05 AM) Body Mass Index [18.5-24.99] 20.3 (01/26/21 7:05 AM) Blood Pressure [90-138/55-84 mm Hg] 112/ 68mm Hg (01/26/21 7:05 AM) Respiratory Rate [16-30 br/min] 16 br/mi n (01/26/21 7:05 AM) Temperature [96.8-100.4 DegF] 97.9 DegF (01/26/21 7:05 AM) Mode of Delivery (Oxygen) Room air (01/26/21 7:05 AM) Blood pressure sites Arm, right (01/26/21 7:05 AM) Temperature Route Oral (01/26/21 7:05 AM) Weight Obtained Via Standing scale (01/26/21 7:05 AM) Social History Social History Type Response Smoking Status Never smoker entered on: 05/20/13 Sex
--- OUTSIDE RECORDS SUMMARY | 2022-08-18 21:29 | XMS_ITS | Continuity of Care Document ---
Author Name Unknown Organization [facility] Lucien lt Address [address] [place] [address]- Care Team Providers Care Rn Provider Relations Name Role Phone Arik Hall MD Primary Care Physician [phone] [place] [facility] [place]19 [facility] Adult [address] [place] [address]- [facility] Encounter Diagnosis Idiopathic angioedema(Discharge Diagnosis) - 05/21/19 Attending Physician: Arik Hall MD Allergies, Adverse Reactions, Alerts Substance Reaction Severity [...] 1Result Comment: [05/20/2013] ORDERED BY SIOBHAN JORGE. INSURANCE HEALTHCARE CONSULTANT Medications Adderall XR 25 mg oral capsule, extended release 1 capsule = 25 mg, By Mouth, Daily in AM, DX: F90.9, # 30 capsule, 0 Refills, Maintenance, 05/21/2012:36:00 EST, CR Capsule, [facility] #[id number], 1 capsule By Mouth Daily in AM,x30 days,Instr:DX: F90.9, 05/27/19, 164, cm, 05/21/19 8:55:00 EST... Start Date: 05/21/19 Stop Date: 06/20/19 Status: Ordered Monika Allergy 60 mg oral tablet 1 tablet = 60 mg, By Mouth, 2 times a day, # 60 tablet, 5 Refills, Maintenance, 10/15/16 16:36:51, Tablet Start Date: 10/15/16 Status: Ordered EpiPen 2-Janusz 0.3 mg injectable kit See Instructions, Intramuscular Once may repeat if necessary, # 1 Doses, 0 Refills, Soft Stop, 10/15/16 16:38:24 Start Date: 10/15/16 Status: Ordered EpiPen 2-Janusz 0.3 mg injectable kit = 0.3 mg, Intramuscular, Once, as instructed may repeat if necessary, # 1 each, 0 Refills, Soft Stop, 05/21/19 9:12:00 EST, [facility] #[id number], 164, cm, 05/21/19 8:55:00 EST, Height Start Date: 05/21/19 Status: Ordered ethinyl estradiol-levonorgestrel 30 mcg-0.15 mg oral tablet 1 tablet, By Mouth, Daily, # 28 tablet, 11 Refills, Maintenance, 04/04/15 16:21:12, Tablet, 1 tablet By Mouth Daily Start Date: 04/04/15 Stop Date: 04/04/16 Status: Ordered Problem List Condition Effective Dates Status Health Status Inform ant ADHD(Confirmed) 1, 2 Active Developmental Dyslexia(Confirmed) 3 Active Idiopathic angioedema(Confirmed) Active 1well documented pediatric chart 2dyslexia 3per pediatricain Diagnosis Diagnosis Type Effective Dates Health Status Clinical Service Informant Idiopathic angioedema Discharge Diagnosis 05/21/19 Vital Signs Most recent to oldest [Reference Range]: 1 Height 164.00 cm (05/21/19 8:55 AM) Weight 53.3 kg (05/21/19 8:55 AM) Oxygen Saturation [94-100 %] 99 % (05/21/19 8:55 AM) Pulse Rate [55-90 bpm] 100 bpm *H* (05/21/19 8:55 AM) Body Mass Index [18.5-24.99] 19.82 (05/21/19 8:55 AM) Blood Pressure [90-138/55-84 mm Hg] 104/ 76mm Hg (05/21/19 8:55 AM) Respiratory Rate [16-30 br/min] 16 br/mi n (05/21/19 8:55 AM) Temperature [96.8-100.4 DegF] 98.0 DegF (05/21/19 8:55 AM) Blood pressure sites Arm, left (05/21/19 8:55 AM) Temperature Route Oral (05/21/19 8:55 AM) Social History Social History Type Response Smoking Status Never smoker entered on: 05/20/13 Sex
--- OUTSIDE RECORDS SUMMARY | 2022-08-18 21:29 | XMS_ITS | Continuity of Care Document ---
Author Name Unknown Organization [facility] Lucien lt Address [address] [place] [address]- Care Team Providers Care Sr. Manager Name Role Phone Tierra Vogel NP Primary Care Physician Encounter [facility] [place] Date(s): 02/01/22 - 02/08/22 [facility] Adult [address] [place] [address]- Encounter Diagnosis ADHD(Discharge Diagnosis) - 02/01/22 Vitamin B12 deficiency(Discharge Diagnosis) - 02/01/22 Attending Physician: Tierra Vogel NP Allergies, Adverse Reactions, Alerts Substance Reaction Severity [...] 1Result Comment: [05/20/2013] ORDERED BY TIERRA VOGEL. OR FIRST ASSIST REGISTERED NURSE Medications Adderall XR 25 mg oral capsule, extended release 1 capsule = 25 mg, By Mouth, Daily in AM, DX: F90.9, # 30 capsule, 0 Refills, Maintenance, :03:00 EDT, CR Capsule, [facility] #[id number], 1 capsule By Mouth Daily in AM,x30 days,Instr:DX: F90.9, 164, cm, 10/26/21 11:15:00 EDT, Height Start Date: 01/23/22 Stop Date: 02/22/22 Status: Ordered EpiPen 2-Janusz 0.3 mg injectable kit = 0.3 mg, Intramuscular, Once, as instructed may repeat if necessary, # 1 each, 0 Refills, Soft Stop, 05/21/19 9:12:00 EST, [facility] #[id number], 164, cm, 05/21/19 8:55:00 EST, Height Start Date: 05/21/19 Status: Ordered Valtrex 1 gm oral tablet 1 tablet = 1 Gm, By Mouth, Daily, for 90 days, # 90 tablet, 0 Refills, Acute 04/21/22 7:14:00 EST, 01/21/22 7:14:00 EDT, Tablet, [facility] #[id number], 164, cm, 10/26/21 11:15:00 EDT, Height Start Date: 01/21/22 Stop Date: 04/21/22 Status: Ordered Vitamin B12 1000 mcg oral tablet 1 tablet = 1,000 mcg, By Mouth, Daily, # 90 tablet, 1 Refills, Maintenance, 02/01/22 9:06:00 EDT, Tablet, [facility] #[id number], 164, cm, 02/01/22 8:51:00 EDT, Height Start [...] Status Clinical Service Informant ADHD Discharge Diagnosis 02/01/22 Vitamin B12 deficiency Discharge Diagnosis 02/01/22 Vital Signs Most recent to oldest [Reference Range]: 1 Height 164.00 cm (02/01/22 8:51 AM) Weight 54.2 kg (02/01/22 8:51 AM) Oxygen Saturation [94-100 %] 98 % (02/01/22 8:51 AM) Pulse Rate [55-90 bpm] 90 bpm (02/01/22 8:51 AM) Body Mass Index [18.5-24.99 kg/m2] 20.15 kg/m2 (02/01/22 8:51 AM) Blood Pressure [90-138/55-84 mm Hg] 128/ 80mm Hg (02/01/22 8:51 AM) Mode of Delivery (Oxygen) Room air (02/01/22 8:51 AM) Blood pressure sites Arm, left (02/01/22 8:51 AM) Weight Obtained Via Standing scale (02/01/22 8:51 AM) Social History Social History Type Response Smoking Status Never smoker entered on: 05/20/13 Sex Patient Care team information Personnel Name: Tierra Vogel NP Address: Address: [address] [place] [address]
--- OUTSIDE RECORDS SUMMARY | 2022-08-18 21:29 | XMS_ITS | Continuity of Care Document ---
Author Name Unknown Organization [facility] Lucien Address [address] [place] [address]- Care Team Providers Care Culture Manager Name Role Phone Rafael PALACIO, Arik Santiago Primary Care Physician [facility] Date(s): 10/24/21 - 11/23/21 [facility] Adult [address] [place] [address]- Allergies, Adverse Reactions, Alerts Substance Reaction Severity [...] 1Result Comment: [05/20/2013] ORDERED BY SIOBHAN JORGE. CLAIMS DIRECTOR Medications Adderall XR 25 mg oral capsule, extended release 1 capsule = 25 mg, By Mouth, Daily in AM, DX: F90.9, # 30 capsule, 0 Refills, Maintenance, 10/26/2213:20:00 EDT, CR Capsule, [facility] #[id number], 1 capsule By Mouth Daily in AM,x30 days,Instr:DX: F90.9, 164, cm, 10/26/21 11:15:00 EDT, Height Start Date: 10/26/21 Stop Date: 11/25/21 Status: Ordered EpiPen 2-Janusz 0.3 mg injectable kit = 0.3 mg, Intramuscular, Once, as instructed may repeat if necessary, # 1 each, 0 Refills, Soft Stop, 05/21/19 9:12:00 EST, [facility] #[id number], 164, cm, 05/21/19 8:55:00 EST, Height Start Date: 05/21/19 Status: Ordered [place]-3 Fish Oil = 1,000 mg, By Mouth, Daily, 0 Refills, Maintenance, 07/28/21 7:19:00 EDT Start Date: 07/28/21 Status: Ordered Valtrex 1 gm oral tablet 1 tablet = 1 Gm, By Mouth, Daily, for 90 days, # 90 tablet, 0 Refills, Acute 01/21/22 7:14:00 EDT, 10/23/21 7:14:00 EDT, Tablet, [facility] #[id number], 164, cm, 07/28/21 7:07:00 EDT, Height Start [...]
--- OUTSIDE RECORDS SUMMARY | 2022-08-18 21:29 | XMS_ITS | Continuity of Care Document ---
Author Name Unknown Organization [facility] Lucien lt Address [address] [place] [address]- Care Team Providers Care Scrap Wheeler Name Role Phone Rafael PALACIO, Arik Santiago Primary Care Physician [facility] Date(s): 01/11/20 - 02/10/20 [facility] Adult [address] [place] [address]- [facility] Allergies, Adverse Reactions, Alerts Substance Reaction Severity [...] 1Result Comment: [05/20/2013] ORDERED BY SIOBHAN JORGE. SLUDGE CONTROL OPERATOR Medications Adderall XR 25 mg oral [...] 0 Refills, Soft Stop, 05/21/19 9:12:00 EST, [facility] #[id number], 164, cm, 05/21/19 8:55:00 EST, Height Start Date: 05/21/19 Status: Ordered Lidocaine Viscous 2% solution 5 mL = 0.1 Gm, Swish and Spit, 3 times a day, PRN as needed for mouth sore pain, for 7 days, # 180 mL, 0 Refills, Acute 02/11/20 9:54:00 EDT, 02/04/20 9:54:00 EDT, [id number], Please mix 60mLof viscous Lidocaine 2% with 60mL of diphenhydramin... Start Date: 02/04/20 Stop Date: 02/11/20 Status: Ordered polymyxin B-trimethoprim ophthalmic 27366 u-1 mg/ml solution See Instructions, 1 drops affect eye 4 times a day 5 days, # 5 mL, 0 Refills, Acute 02/11/20 9:57:00 EDT, 02/04/20 9:57:00 EDT, [id number], 1 drops affect eye 4 times a day 5 days, 164, cm, 02/04/20 9:18:00 EDT, Height Start Date: 02/04/20 Stop Date: 02/11/20 Status: Ordered Problem List Condition Effective Dates Status Health Status Inform ant ADHD(Confirmed) 1, 2 Active Developmental Dyslexia(Confirmed) 3 Active H/O angioedema(Confirmed) Active Lymphocytosis since 2010(Confirmed) Active 1well documented pediatric chart 2dyslexia 3per pediatricain Social History Social History Type Response Smoking Status Never smoker entered on: 05/20/13 Sex
--- OUTSIDE RECORDS SUMMARY | 2022-08-18 21:29 | XMS_ITS | Continuity of Care Document ---
Author Name Unknown Organization [facility] Lucien lt Address [address] [place] [address]- Care Team Providers Care Print Shop Chief Clerk Name Role Phone Rafael PALACIO, Arik Santiago Primary Care Physician [facility] Date(s): 07/26/20 - 08/25/20 [facility] Adult [address] [place] [address]- Allergies, Adverse Reactions, Alerts Substance Reaction Severity [...] Given 1Result Comment: [05/20/2013] ORDERED BY SIOBHAN ANIA. SOAKER SODA WORKER Medications Adderall XR 25 mg oral capsule, extended release 1 capsule = 25 mg, By Mouth, Daily in AM, DX: F90.9, # 30 capsule, 0 Refills, Maintenance, 08/24/2116:54:00 EDT, CR Capsule, [facility] #[id number], 1 capsule By Mouth Daily in AM,x30 days,Instr:DX: F90.9, 08/25/20, 164, cm, 07/27/20 7:11:00 EDT... Start Date: 08/24/20 Stop Date: 09/23/20 Status: Ordered EpiPen 2-Janusz 0.3 mg injectable kit = 0.3 mg, Intramuscular, Once, as instructed may repeat if necessary, # 1 each, 0 Refills, Soft Stop, 05/21/19 9:12:00 EST, [facility] #[id number], 164, cm, 05/21/19 8:55:00 EST, Height Start [...]
--- OUTSIDE RECORDS SUMMARY | 2022-08-18 21:29 | XMS_ITS | Continuity of Care Document ---
Author Name Unknown Organization [facility] Lucien lt Address [address] [place] [address]- Care Team Providers Care Physician Industrial Name Role Phone Lela Tierra FARRELL Primary Care Physician [facility]counter [facility] Date(s): 04/12/22 - 05/12/22 [facility] Adult [address] [place] [address]- Allergies, Adverse Reactions, Alerts Substance Reaction Severity [...] 1Result Comment: [05/20/2013] ORDERED BY TIERRA VOGEL. MENHADEN FISHING CREW MEMBER Medications Adderall XR 25 mg oral capsule, extended release 1 capsule = 25 mg, By Mouth, Daily in AM, DX: F90.9, # 30 capsule, 0 Refills, Maintenance, 04/24/2311:31:00 EST, CR Capsule, [facility] #[id number], 1 capsule By Mouth Daily in AM,x30 days,Instr:DX: F90.9, 164, cm, 02/01/22 8:51:00 EDT, Height Start Date: 04/24/22 Stop Date: 05/24/22 Status: Ordered EpiPen 2-Janusz 0.3 mg injectable kit = 0.3 mg, Intramuscular, Once, as instructed may repeat if necessary, # 1 each, 0 Refills, Soft Stop, 05/21/19 9:12:00 EST, [facility] #[id number], 164, cm, 05/21/19 8:55:00 EST, Height Start Date: 05/21/19 Status: Ordered Valtrex 1 gm oral tablet 1 tablet = 1 Gm, By Mouth, Daily, for 90 days, # 90 tablet, 0 Refills, Acute 06/14/22 13:29:00 EST,03/16/22 13:29:00 EST, Tablet, [facility] #[id number], 164, cm, 02/01/22 8:51:00 EDT, Height Start Date: 03/16/22 Stop Date: 06/14/22 Status: Ordered Vitamin B12 1000 mcg oral tablet 1 tablet = 1,000 mcg, By Mouth, Daily, # 90 tablet, 1 Refills, Maintenance, 02/01/22 9:06:00 EDT, Tablet, [facility] #[id number], 164, cm, 02/01/22 8:51:00 EDT, Height Start [...] Associate Professional Member Role: PCP Address: Address: [address] [place] [address]- Care Team Related Persons Name: HELEN NOBLES Address: home [address] [place] [address] Name: DRAGAN AMARO Address: home [address] [place] [address]
--- OUTSIDE RECORDS SUMMARY | 2022-08-18 21:29 | XMS_ITS | Continuity of Care Document ---
Author Name Unknown Organization [facility] Lucien lt Address [address] [place] [address]- Care Team Providers Care Lithography Contact Worker Name Role Phone Rafael PALACIO, Arik Santiago Primary Care Physician [place] [facility] [place]20 [facility] Adult [address] [place] [address]- Allergies, Adverse Reactions, Alerts Substance Reaction Severity [...] 1Result Comment: [05/20/2013] ORDERED BY SIOBHAN JORGE. HEAT SEAL OPERATOR Medications Adderall XR 25 mg oral capsule, extended release 1 capsule = 25 mg, By Mouth, Daily in AM, DX: F90.9, # 30 capsule, 0 Refills, Maintenance, 11/22/2109:27:00 EDT, CR Capsule, [facility] #[id number], 1 capsule By Mouth Daily in AM,x30 days,Instr:DX: F90.9, 11/24/20, 164, cm, 07/27/20 7:11:00 EDT... Start Date: 11/22/20 Stop Date: 12/22/20 Status: Ordered EpiPen 2-Janusz 0.3 mg injectable kit = 0.3 mg, Intramuscular, Once, as instructed may repeat if necessary, # 1 each, 0 Refills, Soft Stop, 05/21/19 9:12:00 EST, [facility] #[id number], 164, cm, 05/21/19 8:55:00 EST, Height Start [...]
--- OUTSIDE RECORDS SUMMARY | 2022-08-18 21:29 | XMS_ITS | Continuity of Care Document ---
Author Name Unknown Organization [facility] Adult Address [address] [place] [address]- Care Team Providers Care Tea Bag Machine Tender Name Role Phone Lela Tierra FARRELL Primary Care Physician [facility]counter [facility] Date(s): 03/07/22 - 04/06/22 [facility] Adult [address] [place] [address]- Allergies, Adverse Reactions, Alerts Substance Reaction Severity [...] 1Result Comment: [05/20/2013] ORDERED BY TIERRA VOGEL. STOPPING BUILDER Medications Adderall XR 25 mg oral capsule, extended release 1 capsule = 25 mg, By Mouth, Daily in AM, DX: F90.9, # 30 capsule, 0 Refills, Maintenance, 03/22/2210:02:00 EST, CR Capsule, [facility] #[id number], 1 capsule By Mouth Daily in AM,x30 days,Instr:DX: F90.9, 164, cm, 02/01/22 8:51:00 EDT, Height Start Date: 03/22/22 Stop Date: 04/21/22 Status: Ordered EpiPen 2-Janusz 0.3 mg injectable kit = 0.3 mg, Intramuscular, Once, as instructed may repeat if necessary, # 1 each, 0 Refills, Soft Stop, 05/21/19 9:12:00 EST, [facility] #[id number], 164, cm, 05/21/19 8:55:00 EST, Height Start Date: 05/21/19 Status: Ordered Valtrex 1 gm oral tablet 1 tablet = 1 Gm, By Mouth, Daily, for 90 days, # 90 tablet, 0 Refills, Acute 04/21/22 7:14:00 EST, 01/21/22 7:14:00 EDT, Tablet, [facility] #[id number], 164, cm, 10/26/21 11:15:00 EDT, Height Start Date: 01/21/22 Stop Date: 04/21/22 Status: Ordered Valtrex 1 gm oral tablet 1 tablet = 1 Gm, By Mouth, Daily, for 90 days, # 90 tablet, 0 Refills, Acute 06/14/22 13:29:00 EST,03/16/22 13:29:00 EST, Tablet, [facility] #[id number], 164, cm, 02/01/22 8:51:00 EDT, Height Start Date: 03/16/22 Stop Date: 06/14/22 Status: Ordered Vitamin B12 1000 mcg oral tablet 1 tablet = 1,000 mcg, By Mouth, Daily, # 90 tablet, 1 Refills, Maintenance, 02/01/22 9:06:00 EDT, Tablet, [facility] #[id number], 164, cm, 02/01/22 8:51:00 EDT, Height Start [...] Associate Professional Member Role: PCP Address: Address: [address] [place] [address]- Care Team Related Persons Name: HELEN NOBLES Address: home [address] [place] [address] Name: DRAGAN AMARO Address: home [address] [place] [address]
--- OUTSIDE RECORDS SUMMARY | 2022-08-18 21:29 | XMS_ITS | Continuity of Care Document ---
Author Name Unknown Organization [facility] Address [address] [place] [address]- Care Team Providers Care High Pressure Kettle Operator Name Role Phone Rafael PALACIO, Arik Santiago Primary Care Physician [place] [facility] [place](s): 07/27/20 - 08/26/20 [facility] [address] [place] [address]- Attending Physician: Karina Manriquez Admitting Physician: AdmKarina luna Referring Physician: AdmtrKarina Allergies, Adverse Reactions, Alerts Substance Reaction Severity [...] 1Result Comment: [05/20/2013] ORDERED BY SIOBHAN JORGE. SADDLE LINING STITCHER Medications Adderall XR 25 mg oral capsule, extended release 1 capsule = 25 mg, By Mouth, Daily in AM, DX: F90.9, # 30 capsule, 0 Refills, Maintenance, 08/24/2116:54:00 EDT, CR Capsule, [facility] #[id number], 1 capsule By Mouth Daily in AM,x30 days,Instr:DX: F90.9, 08/25/20, 164, cm, 07/27/20 7:11:00 EDT... Start Date: 08/24/20 Stop Date: 09/23/20 Status: Ordered EpiPen 2-Janusz 0.3 mg injectable kit = 0.3 mg, Intramuscular, Once, as instructed may repeat if necessary, # 1 each, 0 Refills, Soft Stop, 05/21/19 9:12:00 EST, [facility] #[id number], 164, cm, 05/21/19 8:55:00 EST, Height Start [...]
--- OUTSIDE RECORDS SUMMARY | 2022-08-18 21:29 | XMS_ITS | Continuity of Care Document ---
Author Name Unknown Organization [facility] Lucien lt Address [address] [place] [address]- Care Team Providers Care Reforestation Worker Name Role Phone Rafael PALACIO, Arik Santiago Primary Care Physician Encounter [facility] [place] Date(s): 01/25/21 - 02/24/21 [facility] Adult [address] [place] [address]- Allergies, Adverse Reactions, Alerts Substance Reaction Severity [...] 1Result Comment: [05/20/2013] ORDERED BY SIOBHAN JORGE. UNIVERSITY PROFESSOR Medications Adderall XR 25 mg oral capsule, extended release 1 capsule = 25 mg, By Mouth, Daily in AM, DX: F90.9, # 30 capsule, 0 Refills, Maintenance, 219:10:00 EDT, CR Capsule, [facility] #[id number], 1 capsule By Mouth Daily in AM,x30 days,Instr:DX: F90.9, 02/08/21, 164, cm, 01/26/21 7:05:00 EDT,... Start Date: 02/06/21 Stop Date: 03/08/21 Status: Ordered EpiPen 2-Janusz 0.3 mg injectable kit = 0.3 mg, Intramuscular, Once, as instructed may repeat if necessary, # 1 each, 0 Refills, Soft Stop, 05/21/19 9:12:00 EST, [facility] #[id number], 164, cm, 05/21/19 8:55:00 EST, Height Start Date: 05/21/19 Status: Ordered Valtrex 1 gm oral tablet 1 tablet = 1 Gm, By Mouth, Daily, for 90 days, # 90 tablet, 0 Refills, Acute 04/26/21 7:14:00 EST, 01/26/21 7:14:00 EDT, Tablet, [facility] #[id number], 164, cm, 01/26/21 7:05:00 EDT, Height Start Date: 01/26/21 Stop Date: 04/26/21 Status: Ordered Vitamin B12 1000 mcg oral tablet 1 tablet = 1,000 mcg, By Mouth, Daily, # 90 tablet, 1 Refills, Maintenance, 01/17/21 13:16:00 EDT, Tablet, [facility] #[id number], Partial fill upon patient request if the [...]
--- OUTSIDE RECORDS SUMMARY | 2022-08-18 21:29 | XMS_ITS | Continuity of Care Document ---
Author Name Unknown Organization [facility] Lucien lt Address [address] [place] [address]- Care Team Providers Care Kiosk Sales Representative Name Role Phone Rafael PALACIO, Arik Santiago Primary Care Physician [place] [facility] [place]/17/21 - 02/16/21 [facility] Adult [address] [place] [address]- Allergies, Adverse Reactions, Alerts Substance Reaction Severity [...] 1Result Comment: [05/20/2013] ORDERED BY SIOBHAN JORGE. EAR SPECIALIST Medications Adderall XR 25 mg oral capsule, extended release 1 capsule = 25 mg, By Mouth, Daily in AM, DX: F90.9, # 30 capsule, 0 Refills, Maintenance, 219:10:00 EDT, CR Capsule, [facility] #[id number], 1 capsule By Mouth Daily in AM,x30 days,Instr:DX: F90.9, 02/08/21, 164, cm, 01/26/21 7:05:00 EDT,... Start Date: 02/06/21 Stop Date: 03/08/21 Status: Ordered EpiPen 2-Janusz 0.3 mg injectable kit = 0.3 mg, Intramuscular, Once, as instructed may repeat if necessary, # 1 each, 0 Refills, Soft Stop, 05/21/19 9:12:00 EST, [facility] #[id number], 164, cm, 05/21/19 8:55:00 EST, Height Start Date: 05/21/19 Status: Ordered Valtrex 1 gm oral tablet 1 tablet = 1 Gm, By Mouth, Daily, for 90 days, # 90 tablet, 0 Refills, Acute 04/26/21 7:14:00 EST, 01/26/21 7:14:00 EDT, Tablet, [facility] #[id number], 164, cm, 01/26/21 7:05:00 EDT, Height Start Date: 01/26/21 Stop Date: 04/26/21 Status: Ordered Vitamin B12 1000 mcg oral tablet 1 tablet = 1,000 mcg, By Mouth, Daily, # 90 tablet, 1 Refills, Maintenance, 01/17/21 13:16:00 EDT, Tablet, [facility] #[id number], Partial fill upon patient request if the [...]
--- OUTSIDE RECORDS SUMMARY | 2022-08-18 21:29 | XMS_ITS | Continuity of Care Document ---
Author Name Unknown Organization [facility] Address [address] [place] [address]- Care Team Providers Care Parquet Floor Layer'S Helper Name Role Phone Lela Tierra FARRELL Primary Care Physician [facility] Date(s): 05/21/22 - 06/20/22 [facility] Adult [address] [place] [address]- Allergies, Adverse Reactions, Alerts Substance Reaction Severity [...] 1Result Comment: [05/20/2013] ORDERED BY TIERRA VOGEL. NETWORK ARCHITECT Medications Adderall XR 25 mg oral capsule, extended release 1 capsule = 25 mg, By Mouth, Daily in AM, DX: F90.9, # 30 capsule, 0 Refills, Maintenance, 230:00:00 EST, CR Capsule, [facility] #[id number], 1 capsule By Mouth Daily in AM,x30 days,Instr:DX: F90.9, 164, cm, 02/01/22 8:51:00 EDT, Height Start Date: 06/21/22 Stop Date: 07/21/22 Status: Ordered EpiPen 2-Janusz 0.3 mg injectable kit = 0.3 mg, Intramuscular, Once, as instructed may repeat if necessary, # 1 each, 0 Refills, Soft Stop, 05/21/19 9:12:00 EST, [facility] #[id number], 164, cm, 05/21/19 8:55:00 EST, Height Start Date: 05/21/19 Status: Ordered Valtrex 1 gm oral tablet 1 tablet = 1 Gm, By Mouth, Daily, for 90 days, # 90 tablet, 0 Refills, Acute 09/12/22 13:29:00 EDT,06/14/22 13:29:00 EST, Tablet, [facility] #[id number], 164, cm, 02/01/22 8:51:00 EDT, Height Start Date: 06/14/22 Stop Date: 09/12/22 Status: Ordered Vitamin B12 1000 mcg oral tablet 1 tablet = 1,000 mcg, By Mouth, Daily, # 90 tablet, 1 Refills, Maintenance, 05/15/22 10:58:00 EST, Tablet, [facility] #[id number], 164, cm, 02/01/22 8:51:00 EDT, Height Start [...] Associate Professional Member Role: PCP Address: Address: [address] [place] [address]- Care Team Related Persons Name: HELEN NOBLES Address: home [address] [place] [address] Name: DRAGAN AMARO Address: home [address] [place] [address]
--- OUTSIDE RECORDS SUMMARY | 2022-08-18 21:29 | XMS_ITS | Continuity of Care Document ---
Author Name Unknown Organization [facility] Lucien lt Address [address] [place] [address]- Care Team Providers Care Research Leader Name Role Phone Rafael PALACIO, Arik Santiago Primary Care Physician [phone] Encounter [facility] [place] Date(s): 06/22/20 - 07/22/20 [facility] Adult [address] [place] [address]- Allergies, Adverse Reactions, Alerts Substance Reaction Severity [...] 1Result Comment: [05/20/2013] ORDERED BY SIOBHAN JORGE. FINANCIAL SERVICES ASSOCIATE Medications Adderall XR 25 mg oral capsule, extended release 1 capsule = 25 mg, By Mouth, Daily in AM, DX: F90.9, # 30 capsule, 0 Refills, Maintenance, 06/22/2110:59:00 EST, CR Capsule, [facility] #[id number], 1 capsule By Mouth Daily in AM,x30 days,Instr:DX: F90.9, 06/25/20, 164, cm, 02/04/20 9:18:00 EDT... Start Date: 06/22/20 Stop Date: 07/22/20 Status: Ordered EpiPen 2-Janusz 0.3 mg injectable kit See Instructions, Intramuscular Once may repeat if necessary, # 1 Doses, 0 Refills, Soft Stop, 10/15/16 16:38:24 Start Date: 10/15/16 Status: Ordered EpiPen 2-Janusz 0.3 mg injectable kit = 0.3 mg, Intramuscular, Once, as instructed may repeat if necessary, # 1 each, 0 Refills, Soft Stop, 05/21/19 9:12:00 EST, [facility] #[id number], 164, cm, 05/21/19 8:55:00 EST, Height Start [...]
--- OUTSIDE RECORDS SUMMARY | 2022-08-18 21:29 | XMS_ITS | Continuity of Care Document ---
Author Name Unknown Organization [facility] Lucien Address [address] [place] [address]- Care Team Providers Care Cob Sawyer Name Role Phone Rafael PALACIO, Arik Santiago Primary Care Physician [phone] [facility]counter [facility] Date(s): 10/31/21 - 11/30/21 [facility] Adult [address] [place] [address]- Allergies, Adverse Reactions, Alerts Substance Reaction Severity [...] 1Result Comment: [05/20/2013] ORDERED BY SIOBHAN JORGE. GARAGE DOOR INSTALLER Medications Adderall XR 25 mg oral capsule, extended release 1 capsule = 25 mg, By Mouth, Daily in AM, DX: F90.9, # 30 capsule, 0 Refills, Maintenance, 11/28/2211:00:00 EDT, CR Capsule, [facility] #[id number], 1 capsule By Mouth Daily in AM,x30 days,Instr:DX: F90.9, 164, cm, 10/26/21 11:15:00 EDT, Height Start Date: 11/27/21 Stop Date: 12/27/21 Status: Ordered EpiPen 2-Janusz 0.3 mg injectable kit = 0.3 mg, Intramuscular, Once, as instructed may repeat if necessary, # 1 each, 0 Refills, Soft Stop, 05/21/19 9:12:00 EST, [facility] #[id number], 164, cm, 05/21/19 8:55:00 EST, Height Start Date: 05/21/19 Status: Ordered [place]-3 Fish Oil = 1,000 mg, By Mouth, Daily, 0 Refills, Maintenance, 07/28/21 7:19:00 EDT Start Date: 07/28/21 Status: Ordered Valtrex 1 gm oral tablet 1 tablet = 1 Gm, By Mouth, Daily, for 90 days, # 90 tablet, 0 Refills, Acute 01/21/22 7:14:00 EDT, 10/23/21 7:14:00 EDT, Tablet, [facility] #[id number], 164, cm, 07/28/21 7:07:00 EDT, Height Start [...]
--- OUTSIDE RECORDS SUMMARY | 2022-08-18 21:29 | XMS_ITS | Continuity of Care Document ---
Author Name Unknown Organization [facility] Address [address] [place] [address]- Care Team Providers Care Medicare Coordinator Name Role Phone Rafael PALACIO, Arik Santiago Primary Care Physician [facility] Date(s): 12/04/21 - 01/03/22 [facility] Adult [address] [place] [address]- Allergies, Adverse Reactions, Alerts Substance Reaction Severity [...] Comment: [05/20/2013] ORDERED BY SIOBHAN JORGE. HOT METAL CAR OPERATOR Medications Adderall XR 25 mg oral capsule, extended release 1 capsule = 25 mg, By Mouth, Daily in AM, DX: F90.9, # 30 capsule, 0 Refills, Maintenance, 12/27/2214:39:00 EDT, CR Capsule, [facility] #[id number], 1 capsule By Mouth Daily in AM,x30 days,Instr:DX: F90.9, 164, cm, 10/26/21 11:15:00 EDT, Height Start Date: 12/27/21 Stop Date: 01/26/22 Status: Ordered EpiPen 2-Jnausz 0.3 mg injectable kit = 0.3 mg, Intramuscular, Once, as instructed may repeat if necessary, # 1 each, 0 Refills, Soft Stop, 05/21/19 9:12:00 EST, [facility] #[id number], 164, cm, 05/21/19 8:55:00 EST, Height Start Date: 05/21/19 Status: Ordered [place]-3 Fish Oil = 1,000 mg, By Mouth, Daily, 0 Refills, Maintenance, 07/28/21 7:19:00 EDT Start Date: 07/28/21 Status: Ordered Valtrex 1 gm oral tablet 1 tablet = 1 Gm, By Mouth, Daily, for 90 days, # 90 tablet, 0 Refills, Acute 04/21/22 7:14:00 EST, 01/21/22 7:14:00 EDT, Tablet, [facility] #31440, 164, cm, 10/26/21 11:15:00 EDT, Height Start Date: 01/21/22 Stop Date: 04/21/22 Status: Ordered Valtrex 1 gm oral tablet 1 tablet = 1 Gm, By Mouth, Daily, for 90 days, # 90 tablet, 0 Refills, Acute 01/21/22 7:14:00 EDT, 10/23/21 7:14:00 EDT, Tablet, [facility] #[id number], 164, cm, 07/28/21 7:07:00 EDT, Height Start Date: 10/23/21 Stop Date: 01/21/22 Status: Ordered Vitamin B12 1000 mcg oral tablet 1 tablet = 1,000 mcg, By Mouth, Daily, # 90 tablet, 1 Refills, Maintenance, 07/18/21 8:44:00 EDT, Tablet, [facility] #[id number], Partial fill upon patient request if the prescription is for a schedule II opioid drug., 164, cm, 01/26/21 7:05:00 E... Start Date: 07/18/21 Status: Ordered Zinc = 140 mg, By [...] Status Never smoker entered on: 05/20/13 Sex Care Team Personnel Name: Rafael PALACIO, Arik Santiago Address: [address] [place] [address] [place] [address]-
--- OUTSIDE RECORDS SUMMARY | 2022-08-18 21:29 | XMS_ITS | Continuity of Care Document ---
Author Name Unknown Organization [facility] Luc[facility] Address [address] [place] [address]- Care Team Providers Care Farm Advisor Name Role Phone Rafael PALACIO, Arik Santiago Primary Care Physician [phone] Encounter [facility] Date(s): 06/27/21 - 07/27/21 [facility] Adult [address] [place] [address]- Allergies, Adverse Reactions, Alerts Substance Reaction Severity [...] 1Result Comment: [05/20/2013] ORDERED BY SIOBHAN JORGE. CAREER DEVELOPMENT COORDINATOR Medications Adderall XR 25 mg oral capsule, extended release 1 capsule = 25 mg, By Mouth, Daily in AM, for 30 days, DX: F90.9, # 30 capsule, 0 Refills, Hard Stop 08/02/21 9:57:00 EDT, 07/03/21 9:57:00 EDT, CR Capsule, [facility] #[id number], 164, cm, 01/26/21 7:05:00 EDT, Height Start Date: 07/03/21 Stop Date: 08/02/21 Status: Ordered Adderall XR 25 mg oral capsule, extended release 1 capsule = 25 mg, By Mouth, Daily in AM, DX: F90.9, # 30 capsule, 0 Refills, Maintenance, 229:57:00 EDT, CR Capsule, [facility] #[id number], 1 capsule By Mouth Daily in AM,x30 days,Instr:DX: F90.9, 164, cm, 01/26/21 7:05:00 EDT, Height Start Date: 08/02/21 Stop Date: 09/01/21 Status: Ordered EpiPen 2-Janusz 0.3 mg injectable kit = 0.3 mg, Intramuscular, Once, as instructed may repeat if necessary, # 1 each, 0 Refills, Soft Stop, 05/21/19 9:12:00 EST, [facility] #[id number], 164, cm, 05/21/19 8:55:00 EST, Height Start Date: 05/21/19 Status: Ordered fluconazole 150 mg oral tablet 1 tablet = 150 mg, By Mouth, Once, # 1 tablet, 0 Refills, Soft Stop, 06/16/21 10:04:00 EST, Tablet,[facility] #[id number], Partial fill upon patient request if the prescription is for a schedule II opioid drug., 164, cm, 01/26/21 7:05:00 EDT, He... Start Date: 06/16/21 Status: Ordered Valtrex 1 gm oral tablet 1 tablet = 1 Gm, By Mouth, Daily, for 90 days, # 90 tablet, 0 Refills, Acute 10/23/21 7:14:00 EDT, 07/25/21 7:14:00 EDT, Tablet, [facility] #[id number], 164, cm, 01/26/21 7:05:00 EDT, Height Start Date: 07/25/21 Stop Date: 10/23/21 Status: Ordered Problem List Condition Effective Dates Status Health Status Inform ant ADHD(Confirmed) 1, 2 Active Vitamin B12 deficiency(Confirmed) Active Developmental Dyslexia(Confirmed) 3 Active H/O angioedema(Confirmed) Active Herpes labialis(Confirmed) Active Lymphocytosis since 2010(Confirmed) Active 1well documented pediatric chart 2dyslexia 3per pediatricain Social History Social History Type Response Smoking Status Never smoker entered on: 05/20/13 Sex
--- OUTSIDE RECORDS SUMMARY | 2022-08-18 21:29 | XMS_ITS | Continuity of Care Document ---
Author Name Unknown Organization [facility] Address [address] [place] [address]- Care Team Providers Care Small Business Banking Officer Name Role Phone Rafael PALACIO, Arik Santiago Primary Care Physician [phone] Encounter [facility] Date(s): 10/24/21 - 11/23/[address] [address] Allergies, Adverse Reactions, Alerts Substance Reaction Severity [...] 1Result Comment: [05/20/2013] ORDERED BY SIOBHAN JORGE. PACKAGE YARNS DRYING MACHINE OPERATOR Medications Adderall XR 25 mg oral capsule, extended release 1 capsule = 25 mg, By Mouth, Daily in AM, DX: F90.9, # 30 capsule, 0 Refills, Maintenance, 10/26/2213:20:00 EDT, CR Capsule, [facility] #[id number], 1 capsule By Mouth Daily in AM,x30 days,Instr:DX: F90.9, 164, cm, 10/26/21 11:15:00 EDT, Height Start Date: 10/26/21 Stop Date: 11/25/21 Status: Ordered EpiPen 2-Janusz 0.3 mg injectable kit = 0.3 mg, Intramuscular, Once, as instructed may repeat if necessary, # 1 each, 0 Refills, Soft Stop, 05/21/19 9:12:00 EST, [facility] #[id number], 164, cm, 05/21/19 8:55:00 EST, Height Start Date: 05/21/19 Status: Ordered [place]-3 Fish Oil = 1,000 mg, By Mouth, Daily, 0 Refills, Maintenance, 07/28/21 7:19:00 EDT Start Date: 07/28/21 Status: Ordered Valtrex 1 gm oral tablet 1 tablet = 1 Gm, By Mouth, Daily, for 90 days, # 90 tablet, 0 Refills, Acute 01/21/22 7:14:00 EDT, 10/23/21 7:14:00 EDT, Tablet, [facility] #[id number], 164, cm, 07/28/21 7:07:00 EDT, Height Start [...]
--- OUTSIDE RECORDS SUMMARY | 2022-08-18 21:29 | XMS_ITS | Continuity of Care Document ---
Author Name Unknown Organization [facility] Address [address] [facility] [place] [address]- Care Team Providers Care Picu Nurse Name Role Phone Rafael PALACIO, Arik Santiago Primary Care Physician [phone] Encounter 11/06/21 - 11/13/21 [facility] [address], [address] [place] [address]- Attending Physician: Tierra Vogel NP Admitting Physician: Tierra Vogel NP Referring Physician: Tierra Vogel NP Allergies, Adverse Reactions, [...] Comment: [05/20/2013] ORDERED BY TIERRA VOGEL. SENIOR PRINCIPAL PROCESS ENGINEER Medications Adderall XR 25 mg oral capsule, extended release 1 capsule = 25 mg, By Mouth, Daily in AM, DX: F90.9, # 30 capsule, 0 Refills, Maintenance, 10/26/2213:20:00 EDT, CR Capsule, [facility] #[id number], 1 capsule By Mouth Daily in AM,x30 days,Instr:DX: F90.9, 164, cm, 10/26/21 11:15:00 EDT, Height Start Date: 10/26/21 Stop Date: 11/25/21 Status: Ordered EpiPen 2-Janusz 0.3 mg injectable kit = 0.3 mg, Intramuscular, Once, as instructed may repeat if necessary, # 1 each, 0 Refills, Soft Stop, 05/21/19 9:12:00 EST, [facility] #[id number], 164, cm, 05/21/19 8:55:00 EST, Height Start Date: 05/21/19 Status: Ordered [place]-3 Fish Oil = 1,000 mg, By Mouth, Daily, 0 Refills, Maintenance, 07/28/21 7:19:00 EDT Start Date: 07/28/21 Status: Ordered Valtrex 1 gm oral tablet 1 tablet = 1 Gm, By Mouth, Daily, for 90 days, # 90 tablet, 0 Refills, Acute 01/21/22 7:14:00 EDT, 10/23/21 7:14:00 EDT, Tablet, [facility] #[id number], 164, cm, 07/28/21 7:07:00 EDT, Height Start [...]
--- OUTSIDE RECORDS SUMMARY | 2022-08-18 21:29 | XMS_ITS | Continuity of Care Document ---
Author Name Unknown Organization [facility] Address [address] [place] [address]- Care Team Providers Care Roller Bearing Inspector Name Role Phone Rafael PALACIO, Arik Santiago Primary Care Physician Encounter [facility] Date(s): 12/22/20 - 01/21/21 [facility] Adult [address] [place] [address]- Allergies, Adverse Reactions, Alerts Substance Reaction Severity [...] 1Result Comment: [05/20/2013] ORDERED BY SIOBHAN JORGE. CRIMINAL JUSTICE PROGRAM DIRECTOR Medications Adderall XR 25 mg oral capsule, extended release 1 capsule = 25 mg, By Mouth, Daily in AM, DX: F90.9, # 30 capsule, 0 Refills, Maintenance, 217:31:00 EDT, CR Capsule, [facility] #[id number], 1 capsule By Mouth Daily in AM,x30 days,Instr:DX: F90.9, 01/09/21, 164, cm, 07/27/20 7:11:00 EDT,... Start Date: 01/05/21 Stop Date: 02/04/21 Status: Ordered EpiPen 2-Janusz 0.3 mg injectable kit = 0.3 mg, Intramuscular, Once, as instructed may repeat if necessary, # 1 each, 0 Refills, Soft Stop, 05/21/19 9:12:00 EST, [facility] #[id number], 164, cm, 05/21/19 8:55:00 EST, Height Start Date: 05/21/19 Status: Ordered Vitamin B12 1000 mcg oral tablet 1 tablet = 1,000 mcg, By Mouth, Daily, # 90 tablet, 1 Refills, Maintenance, 01/17/21 13:16:00 EDT, Tablet, [facility] #[id number], Partial fill upon patient request if the [...]
--- OUTSIDE RECORDS SUMMARY | 2022-08-18 21:29 | XMS_ITS | Continuity of Care Document ---
Author Name Unknown Organization [facility] Address [address] [place] [address]- Care Team Providers Care Car Seat Upholsterer Name Role Phone Rafael PALACIO, Arik Santiago Primary Care Physician [place] [facility] [place]s): 07/27/20 - 08/26/20 [facility] [address] [place] [address]- Attending Physician: Karina Manriquez Admitting Physician: AdmKarina luna Referring Physician: AdmtrKarina Allergies, Adverse Reactions, Alerts Substance Reaction Severity Status codeine Active sulfADIAZINE Active Vicodin ES Active Immunizations Given and Recorded Vaccine Date Status Refusal Reason SARS-CoV-2 (COVID-19) mRNA-0369 vaccine 08/16/20 R ecorded tetanus-diphtheria toxoids (Td) [...] 1Result Comment: [05/20/2013] ORDERED BY SIOBHAN JORGE. INSPECTOR AND TESTER Medications Adderall XR 25 mg oral capsule, extended release 1 capsule = 25 mg, By Mouth, Daily in AM, DX: F90.9, # 30 capsule, 0 Refills, Maintenance, 08/24/2116:54:00 EDT, CR Capsule, [facility] #[id number], 1 capsule By Mouth Daily in AM,x30 days,Instr:DX: F90.9, 08/25/20, 164, cm, 07/27/20 7:11:00 EDT... Start Date: 08/24/20 Stop Date: 09/23/20 Status: Ordered EpiPen 2-Janusz 0.3 mg injectable kit = 0.3 mg, Intramuscular, Once, as instructed may repeat if necessary, # 1 each, 0 Refills, Soft Stop, 05/21/19 9:12:00 EST, [facility] #[id number], 164, cm, 05/21/19 8:55:00 EST, Height Start [...]
--- OUTSIDE RECORDS SUMMARY | 2022-08-18 21:29 | XMS_ITS | Continuity of Care Document ---
Author Name Unknown Organization [facility] Address [address] [place] [id number]- Care Team Providers Care Soda Dialyzer Name Role Phone Rafael PALACIO, Arik Santiago Primary Care Physician [place] [facility] [place] 02[place]16/21 [facility] Adult [address] [place] [address]- Allergies, Adverse Reactions, Alerts Substance Reaction Severity [...] 1Result Comment: [05/20/2013] ORDERED BY SIOBHAN JORGE. SHIFT SUPERVISOR Medications Adderall XR 25 mg oral capsule, extended release 1 capsule = 25 mg, By Mouth, Daily in AM, DX: F90.9, # 30 capsule, 0 Refills, Maintenance, 219:10:00 EDT, CR Capsule, [facility] #[id number], 1 capsule By Mouth Daily in AM,x30 days,Instr:DX: F90.9, 02/08/21, 164, cm, 01/26/21 7:05:00 EDT,... Start Date: 02/06/21 Stop Date: 03/08/21 Status: Ordered EpiPen 2-Janusz 0.3 mg injectable kit = 0.3 mg, Intramuscular, Once, as instructed may repeat if necessary, # 1 each, 0 Refills, Soft Stop, 05/21/19 9:12:00 EST, [facility] #[id number], 164, cm, 05/21/19 8:55:00 EST, Height Start Date: 05/21/19 Status: Ordered Valtrex 1 gm oral tablet 1 tablet = 1 Gm, By Mouth, Daily, for 90 days, # 90 tablet, 0 Refills, Acute 04/26/21 7:14:00 EST, 01/26/21 7:14:00 EDT, Tablet, [facility] #[id number], 164, cm, 01/26/21 7:05:00 EDT, Height Start Date: 01/26/21 Stop Date: 04/26/21 Status: Ordered Vitamin B12 1000 mcg oral tablet 1 tablet = 1,000 mcg, By Mouth, Daily, # 90 tablet, 1 Refills, Maintenance, 01/17/21 13:16:00 EDT, Tablet, [facility] #[id number], Partial fill upon patient request if the [...]
--- OUTSIDE RECORDS SUMMARY | 2022-08-18 21:29 | XMS_ITS | Continuity of Care Document ---
Author Name Unknown Organization [facility] Address [address] [place] [address]- Care Team Providers Care Kitchen Clerk Name Role Phone Rafael PALACIO, Arik Santiago Primary Care Physician Encounter [facility] [place] Date(s): 01/04/21 - 02/03/21 [facility] Adult [address] [place] [address]- Allergies, Adverse Reactions, Alerts Substance Reaction Severity [...] 1Result Comment: [05/20/2013] ORDERED BY SIOBHAN JORGE. ORTHODONTIST Medications Adderall XR 25 mg oral capsule, extended release 1 capsule = 25 mg, By Mouth, Daily in AM, DX: F90.9, # 30 capsule, 0 Refills, Maintenance, 217:31:00 EDT, CR Capsule, [facility] #[id number], 1 capsule By Mouth Daily in AM,x30 days,Instr:DX: F90.9, 01/09/21, 164, cm, 07/27/20 7:11:00 EDT,... Start Date: 01/05/21 Stop Date: 02/04/21 Status: Ordered EpiPen 2-Janusz 0.3 mg injectable kit = 0.3 mg, Intramuscular, Once, as instructed may repeat if necessary, # 1 each, 0 Refills, Soft Stop, 05/21/19 9:12:00 EST, [facility] #[id number], 164, cm, 05/21/19 8:55:00 EST, Height Start Date: 05/21/19 Status: Ordered Valtrex 1 gm oral tablet 1 tablet = 1 Gm, By Mouth, Daily, for 90 days, # 90 tablet, 0 Refills, Acute 04/26/21 7:14:00 EST, 01/26/21 7:14:00 EDT, Tablet, [facility] #[id number], 164, cm, 01/26/21 7:05:00 EDT, Height Start Date: 01/26/21 Stop Date: 04/26/21 Status: Ordered Vitamin B12 1000 mcg oral tablet 1 tablet = 1,000 mcg, By Mouth, Daily, # 90 tablet, 1 Refills, Maintenance, 01/17/21 13:16:00 EDT, Tablet, [facility] #[id number], Partial fill upon patient request if the [...]
--- OUTSIDE RECORDS SUMMARY | 2022-08-18 21:29 | XMS_ITS | Continuity of Care Document ---
Author Name Unknown Organization [facility] Address [address] [place] [address]- Care Team Providers Care Insurance Adjustor Name Role Phone Rafael PALACIO, Arik Santiago Primary Care Physician [phone] [place] [facility] [place] 07/27/20 - 08/03/20 [facility] Adult [address] [place] [address]- Encounter Diagnosis Annual physical exam(Discharge Diagnosis) - 07/27/20 ADHD(Discharge Diagnosis) - 07/27/20 H/O angioedema(Discharge Diagnosis) - 07/27/20 Attending Physician: Not on Staff, Attending MD Allergies, Adverse Reactions, Alerts Substance Reaction [...] 1Result Comment: [05/20/2013] ORDERED BY SIOBHAN JORGE. STEEL HANDLER Medications Adderall XR 25 mg oral capsule, extended release 1 capsule = 25 mg, By Mouth, Daily in AM, DX: F90.9, # 30 capsule, 0 Refills, Maintenance, 07/27/2111:09:00 EDT, CR Capsule, [facility] #[id number], 1 capsule By Mouth Daily in AM,x30 days,Instr:DX: F90.9, 164, cm, 02/04/20 9:18:00 EDT, Height Start Date: 07/26/20 Stop Date: 08/25/20 Status: Ordered EpiPen 2-Janusz 0.3 mg injectable kit = 0.3 mg, Intramuscular, Once, as instructed may repeat if necessary, # 1 each, 0 Refills, Soft Stop, 05/21/19 9:12:00 EST, [facility] #[id number], 164, cm, 05/21/19 8:55:00 EST, Height Start Date: 05/21/19 Status: Ordered Problem List Condition Effective Dates Status Health Status Inform ant ADHD(Confirmed) 1, 2 Active Developmental Dyslexia(Confirmed) 3 Active H/O angioedema(Confirmed) Active Lymphocytosis since 2010(Confirmed) Active 1well documented pediatric chart 2dyslexia 3per pediatricain Diagnosis Diagnosis Type Effective Dates Health Status Clinical Service Informant ADHD Discharge Diagnosis 07/27/20 Annual physical exam Discharge Diagnosis 07/27/20 H/O angioedema Discharge Diagnosis 07/27/20 Vital Signs Most recent to oldest [Reference Range]: 1 2 Height 164.00 cm (07/27/20 7:03 AM) 164.00 cm (07/27/20 6:50 AM) Weight 54.6 kg (07/27/20 6:50 AM) Oxygen Saturation [94-100 %] 98 % (07/27/20 6:50 AM) Pulse Rate [55-90 bpm] 90 bpm (07/27/20 7:03 AM) 102 bpm *H* (07/27/20 6:50 AM) Body Mass Index [18.5-24.99] 20.3 (07/27/20 6:50 AM) Blood Pressure [90-138/55-84 mm Hg] 88/6 0mm Hg *L* (07/27/20 6:50 AM) Respiratory Rate [16-30 br/min] 18 br/mi n (07/27/20 6:50 AM) Temperature [96.8-100.4 DegF] 97.6 DegF (07/27/20 6:50 AM) Mode of Delivery (Oxygen) Room air (07/27/20 6:50 AM) Blood pressure sites Arm, left (07/27/20 6:50 AM) Temperature Route Oral (07/27/20 6:50 AM) Weight Obtained Via Pediatric scale (07/27/20 6:50 AM) Social History Social History Type Response Smoking Status Never smoker entered on: 05/20/13 Sex
--- OUTSIDE RECORDS SUMMARY | 2022-08-18 21:29 | XMS_ITS | Continuity of Care Document ---
Author Name Unknown Organization [facility] Address [address] [place] [address]- Care Team Providers Care Manager Communication Name Role Phone Rafael PALACIO, Arik Santiago Primary Care Physician [place] [facility] [place] 11/02/21 [facility] Adult [address] [place] [address]- Encounter Diagnosis FH: type 1 diabetes(Discharge Diagnosis) - 10/29/21 Attending Physician: Not on Staff, Attending MD [...] 1Result Comment: [05/20/2013] ORDERED BY SIOBHAN JORGE. SALES SERVICE ASSISTANT Medications Adderall XR 25 mg oral capsule, extended release 1 capsule = 25 mg, By Mouth, Daily in AM, DX: F90.9, # 30 capsule, 0 Refills, Maintenance, 10/26/2213:20:00 EDT, CR Capsule, [facility] #[id number], 1 capsule By Mouth Daily in AM,x30 days,Instr:DX: F90.9, 164, cm, 10/26/21 11:15:00 EDT, Height Start Date: 10/26/21 Stop Date: 11/25/21 Status: Ordered EpiPen 2-Janusz 0.3 mg injectable kit = 0.3 mg, Intramuscular, Once, as instructed may repeat if necessary, # 1 each, 0 Refills, Soft Stop, 05/21/19 9:12:00 EST, [facility] #[id number], 164, cm, 05/21/19 8:55:00 EST, Height Start Date: 05/21/19 Status: Ordered [place]-3 Fish Oil = 1,000 mg, By Mouth, Daily, 0 Refills, Maintenance, 07/28/21 7:19:00 EDT Start Date: 07/28/21 Status: Ordered Valtrex 1 gm oral tablet 1 tablet = 1 Gm, By Mouth, Daily, for 90 days, # 90 tablet, 0 Refills, Acute 01/21/22 7:14:00 EDT, 10/23/21 7:14:00 EDT, Tablet, [facility] #[id number], 164, cm, 07/28/21 7:07:00 EDT, Height Start [...] Diagnosis Diagnosis Type Effective Dates Health Status Cl inical Service Informant FH: type 1 diabetes Discharge Diagnosis 10/29/21 Vital Signs Most recent to oldest [Reference Range]: 1 Height 164.00 cm (10/26/21 11:15 AM) Weight 53.1 kg (10/26/21 11:15 AM) Oxygen Saturation [94-100 %] 100 % (10/26/21 11:15 AM) Pulse Rate [55-90 bpm] 101 bpm *H* (10/26/21 11:15 AM) Body Mass Index [18.5-24.99] 19.74 (10/26/21 11:15 AM) Blood Pressure [90-138/55-84 mm Hg] 117/ 80mm Hg (10/26/21 11:15 AM) Mode of Delivery (Oxygen) Room air (10/26/21 11:15 AM) Blood pressure sites Arm, right (10/26/21 11:15 AM) Weight Obtained Via Standing scale (10/26/21 11:15 AM) Social History Social History Type Response Smoking Status Never smoker entered on: 05/20/13 Sex
--- OUTSIDE RECORDS SUMMARY | 2022-08-18 21:29 | XMS_ITS | Continuity of Care Document ---
Author Name Unknown Organization [facility] Address [address] [place] [address]- Care Team Providers Care Manager Of Drilling Name Role Phone Rafael PALACIO, Arik Santiago Primary Care Physician [facility] Date(s): 10/14/19 - 11/13/19 [facility] Adult [address] [place] [address]- [facility] Attending Physician: Admtr, [id number] Admitting Physician: AdmtrKarina Referring Physician: Admtr, Ar8 Allergies, Adverse Reactions, [...] 1Result Comment: [05/20/2013] ORDERED BY SIOBHAN JORGE. STOP ATTACHER Medications Adderall XR 25 mg oral capsule, extended release 1 capsule = 25 mg, By Mouth, Daily in AM, DX: F90.9, # 30 capsule, 0 Refills, Maintenance, 10/25/2009:40:00 EDT, CR Capsule, [facility] #[id number], 1 capsule By Mouth Daily in AM,x30 days,Instr:DX: F90.9, 164, cm, 10/14/19 8:21:00 EDT, Height Start Date: 10/26/19 Stop Date: 11/25/19 Status: Ordered EpiPen 2-Janusz 0.3 mg injectable kit See Instructions, Intramuscular Once may repeat if necessary, # 1 Doses, 0 Refills, Soft Stop, 10/15/16 16:38:24 Start Date: 10/15/16 Status: Ordered EpiPen 2-Janusz 0.3 mg injectable kit = 0.3 mg, Intramuscular, Once, as instructed may repeat if necessary, # 1 each, 0 Refills, Soft Stop, 05/21/19 9:12:00 EST, [facility] #[id number], 164, cm, 05/21/19 8:55:00 EST, Height Start [...]
--- OUTSIDE RECORDS SUMMARY | 2022-08-18 21:29 | XMS_ITS | Continuity of Care Document ---
Author Name Unknown Organization [facility] Address [address] [place] [address]- Care Team Providers Care Film Crew Member Name Role Phone Rafael PALACIO, Arik Santiago Primary Care Physician [phone] Encounter [facility] Date(s): 11/24/19 - 12/24/19 [facility] Adult [address] [place] [address]- [facility] Allergies, Adverse Reactions, Alerts Substance Reaction Severity [...] 1Result Comment: [05/20/2013] ORDERED BY SIOBHAN JORGE. CLARK DRIVER Medications Adderall XR 25 mg oral capsule, extended release 1 capsule = 25 mg, By Mouth, Daily in AM, for 30 days, DX: F90.9, # 30 capsule, 0 Refills, Hard Stop 12/25/19 11:40:00 EDT, 11/25/19 11:40:00 EDT, CR Capsule, [facility] #[id number], 164, cm, 10/14/19 8:21:00 EDT, Height Start Date: 11/25/19 Stop Date: 12/25/19 Status: Ordered Adderall XR 25 mg oral capsule, extended release 1 capsule = 25 mg, By Mouth, Daily in AM, DX: F90.9, # 30 capsule, 0 Refills, Maintenance, 12/22/2009:23:00 EDT, CR Capsule, [facility] #[id number], 1 capsule By Mouth Daily in AM,x30 [...] 0 Refills, Soft Stop, 05/21/19 9:12:00 EST, [facility] #[id number], 164, cm, 05/21/19 8:55:00 EST, Height Start [...]
--- OUTSIDE RECORDS SUMMARY | 2022-08-18 21:29 | XMS_ITS | Continuity of Care Document ---
Author Name Unknown Organization [facility] Address [address] [place] [address]- Care Team Providers Care Polymerization Helper Name Role Phone Arik Hall MD Primary Care Physician En[facility] [place] Date(s): 07/28/21 - 08/04/21 [facility] Adult [address] [place] [address]- Encounter Diagnosis Annual physical exam(Discharge Diagnosis) - 07/27/21 ADHD(Discharge Diagnosis) - 07/27/21 Herpes labialis(Discharge Diagnosis) - 07/27/21 Vitamin B12 deficiency(Discharge Diagnosis) - 07/27/21 Attending Physician: Lela FARRELL, Tierra Knowles Referring Physician: Arik Hall MD Allergies, Adverse Reactions, [...] 1Result Comment: [05/20/2013] ORDERED BY TIERRA JORGE. FASHION BUYING INTERNSHIP Medications Adderall XR 25 mg oral capsule, extended release 1 capsule = 25 mg, By Mouth, Daily in AM, DX: F90.9, # 30 capsule, 0 Refills, Maintenance, :57:00 EDT, CR Capsule, [facility] #[id number], 1 capsule By Mouth Daily in AM,x30 days,Instr:DX: F90.9, 164, cm, 01/26/21 7:05:00 EDT, Height Start Date: 08/02/21 Stop Date: 09/01/21 Status: Ordered EpiPen 2-Janusz 0.3 mg injectable kit = 0.3 mg, Intramuscular, Once, as instructed may repeat if necessary, # 1 each, 0 Refills, Soft Stop, 05/21/19 9:12:00 EST, [facility] #[id number], 164, cm, 05/21/19 8:55:00 EST, Height Start Date: 05/21/19 Status: Ordered [place]-3 Fish Oil = 1,000 mg, By Mouth, Daily, 0 Refills, Maintenance, 07/28/21 7:19:00 EDT Start Date: 07/28/21 Status: Ordered Valtrex 1 gm oral tablet 1 tablet = 1 Gm, By Mouth, Daily, for 90 days, # 90 tablet, 0 Refills, Acute 10/23/21 7:14:00 EDT, 07/25/21 7:14:00 EDT, Tablet, [facility] #[id number], 164, cm, 01/26/21 7:05:00 EDT, Height Start [...] Effective Dates Health Status Clinical Service Informant Annual physical exam Discharge Diagnosis 07/27/21 ADHD Discharge Diagnosis 07/27/21 Herpes labialis Discharge Diagnosis 07/27/21 Vitamin B12 deficiency Discharge Diagnosis 07/27/21 Vital Signs Most recent to oldest [Reference Range]: 1 Height 164.00 cm (07/28/21 7:07 AM) Weight 54.2 kg (07/28/21 7:07 AM) Oxygen Saturation [94-100 %] 98 % (07/28/21 7:07 AM) Pulse Rate [55-90 bpm] 96 bpm *H* (07/28/21 7:07 AM) Body Mass Index [18.5-24.99] 20.15 (07/28/21 7:07 AM) Blood Pressure [90-138/55-84 mm Hg] 118/ 68mm Hg (07/28/21 7:07 AM) Temperature [96.8-100.4 DegF] 98.0 DegF (07/28/21 7:07 AM) Blood pressure sites Arm, right (07/28/21 7:07 AM) Social History Social History Type Response Smoking Status Never smoker entered on: 05/20/13 Sex
--- OUTSIDE RECORDS SUMMARY | 2022-08-18 21:29 | XMS_ITS | Continuity of Care Document ---
Author Name Unknown Organization [facility] Address [address] [place] [address]- Care Team Providers Care Shipping/Receiving Manager Name Role Phone Rafael PALACIO, Arik Santiago Primary Care Physician [phone] Encounter [facility] Date(s): 06/05/21 - 07/05/21 [facility] Adult [address] [place] [address]- Allergies, Adverse Reactions, Alerts Substance Reaction Severity [...] 1Result Comment: [05/20/2013] ORDERED BY SIOBHAN JORGE. SENIOR WINDOWS ENGINEER Medications Adderall XR 25 mg oral capsule, extended release 1 capsule = 25 mg, By Mouth, Daily in AM, DX: F90.9, # 30 capsule, 0 Refills, Maintenance, 229:57:00 EDT, CR Capsule, [facility] #[id number], 1 capsule By Mouth Daily in AM,x30 days,Instr:DX: F90.9, 164, cm, 01/26/21 7:05:00 EDT, Height Start Date: 07/03/21 Stop Date: 08/02/21 Status: Ordered EpiPen 2-Janusz 0.3 mg injectable kit = 0.3 mg, Intramuscular, Once, as instructed may repeat if necessary, # 1 each, 0 Refills, Soft Stop, 05/21/19 9:12:00 EST, [facility] #[id number], 164, cm, 05/21/19 8:55:00 EST, Height Start Date: 05/21/19 Status: Ordered fluconazole 150 mg oral tablet 1 tablet = 150 mg, By Mouth, Once, # 1 tablet, 0 Refills, Soft Stop, 06/16/21 10:04:00 EST, [facility] #[id number], Partial fill upon patient request if the prescription is for a schedule II opioid drug., 164, cm, 01/26/21 7:05:00 EDT, He... Start Date: 06/16/21 Status: Ordered Valtrex 1 gm oral tablet 1 tablet = 1 Gm, By Mouth, Daily, for 90 days, # 90 tablet, 0 Refills, Acute 07/25/21 7:14:00 EDT, 04/26/21 7:14:00 EST, Tablet, [facility] #[id number], 164, cm, 01/26/21 7:05:00 EDT, Height Start Date: 04/26/21 Stop Date: 07/25/21 Status: Ordered Valtrex 1 gm oral tablet 1 tablet = 1 Gm, By Mouth, Daily, for 90 days, # 90 tablet, 0 Refills, Acute 10/23/21 7:14:00 EDT, 07/25/21 7:14:00 EDT, Tablet, [facility] #[id number], 164, cm, 01/26/21 7:05:00 EDT, Height Start Date: 07/25/21 Stop Date: 10/23/21 Status: Ordered Vitamin B12 1000 mcg oral tablet 1 tablet = 1,000 mcg, By Mouth, Daily, # 90 tablet, 1 Refills, Maintenance, 01/17/21 13:16:00 EDT, Tablet, [facility] #[id number], Partial fill upon patient request if the [...]
--- OUTSIDE RECORDS SUMMARY | 2022-08-18 21:29 | XMS_ITS | Continuity of Care Document ---
Author Name Unknown Organization [facility] Address [address] [place] [address]- Care Team Providers Care Human Resources Operations Specialist Name Role Phone Rafael PALACIO, Arik Santiago Primary Care Physician Encounter [facility] [place] Date(s): 08/14/21 - 09/13/21 [facility] Adult [address] [place] [address]- Allergies, Adverse Reactions, Alerts Substance Reaction Severity [...] 1Result Comment: [05/20/2013] ORDERED BY SIOBHAN JORGE. ROTATING EQUIPMENT SPECIALIST Medications Adderall XR 25 mg oral capsule, extended release 1 capsule = 25 mg, By Mouth, Daily in AM, DX: F90.9, # 30 capsule, 0 Refills, Maintenance, 08/31/2211:44:00 EDT, CR Capsule, [facility] #[id number], 1 capsule By Mouth Daily in AM,x30 days,Instr:DX: F90.9, 164, cm, 07/28/21 7:07:00 EDT, Height Start Date: 08/30/21 Stop Date: 09/29/21 Status: Ordered EpiPen 2-Janusz 0.3 mg injectable kit = 0.3 mg, Intramuscular, Once, as instructed may repeat if necessary, # 1 each, 0 Refills, Soft Stop, 05/21/19 9:12:00 EST, [facility] #[id number], 164, cm, 05/21/19 8:55:00 EST, Height Start Date: 05/21/19 Status: Ordered [place]-3 Fish Oil = 1,000 mg, By Mouth, Daily, 0 Refills, Maintenance, 07/28/21 7:19:00 EDT Start Date: 07/28/21 Status: Ordered Valtrex 1 gm oral tablet 1 tablet = 1 Gm, By Mouth, Daily, for 90 days, # 90 tablet, 0 Refills, Acute 10/23/21 7:14:00 EDT, 07/25/21 7:14:00 EDT, Tablet, [facility] #[id number], 164, cm, 01/26/21 7:05:00 EDT, Height Start [...]
--- OUTSIDE RECORDS SUMMARY | 2022-08-18 21:29 | XMS_ITS | Continuity of Care Document ---
Author Name Unknown Organization [facility] Address [address] [place] [address]- Care Team Providers Care Hose Sprayer Name Role Phone Lela Tierra FARRELL Primary Care Physician [facility]counter [facility] Date(s): 05/22/22 - 06/21/22 [facility] Adult [address] [place] [address]- Allergies, Adverse Reactions, Alerts Substance Reaction Severity [...] 1Result Comment: [05/20/2013] ORDERED BY TIERRA VOGEL. AUTOMOTIVE PARTS CLERK Medications Adderall XR 25 mg oral capsule, extended release 1 capsule = 25 mg, By Mouth, Daily in AM, DX: F90.9, # 30 capsule, 0 Refills, Maintenance, 230:00:00 EST, CR Capsule, [facility] #[id number], 1 capsule By Mouth Daily in AM,x30 days,Instr:DX: F90.9, 164, cm, 02/01/22 8:51:00 EDT, Height Start Date: 06/21/22 Stop Date: 07/21/22 Status: Ordered EpiPen 2-Janusz 0.3 mg injectable kit = 0.3 mg, Intramuscular, Once, as instructed may repeat if necessary, # 1 each, 0 Refills, Soft Stop, 05/21/19 9:12:00 EST, [facility] #[id number], 164, cm, 05/21/19 8:55:00 EST, Height Start Date: 05/21/19 Status: Ordered Valtrex 1 gm oral tablet 1 tablet = 1 Gm, By Mouth, Daily, for 90 days, # 90 tablet, 0 Refills, Acute 09/12/22 13:29:00 EDT,06/14/22 13:29:00 EST, Tablet, [facility] #[id number], 164, cm, 02/01/22 8:51:00 EDT, Height Start Date: 06/14/22 Stop Date: 09/12/22 Status: Ordered Vitamin B12 1000 mcg oral tablet 1 tablet = 1,000 mcg, By Mouth, Daily, # 90 tablet, 1 Refills, Maintenance, 05/15/22 10:58:00 EST, Tablet, [facility] #[id number], 164, cm, 02/01/22 8:51:00 EDT, Height Start [...] Associate Professional Member Role: PCP Address: Address: [address] [place] [address]- Care Team Related Persons Name: HELEN NOBLES Address: home [address] [place] [address] Name: DRAGAN AMARO Address: home [address] [place] [address]
--- OUTSIDE RECORDS SUMMARY | 2022-08-18 21:29 | XMS_ITS | Continuity of Care Document ---
Author Name Unknown Organization [facility]ien lt Address [address] [place] [address]- Care Team Providers Care Warp Dyeing Tender Name Role Phone Rafael PALACIO, Arik Santiago Primary Care Physician Encounter [facility] [place] Date(s): 05/25/20 - 06/24/20 [facility] Adult [address] [place] [address]- Allergies, Adverse Reactions, Alerts Substance Reaction Severity [...] 1Result Comment: [05/20/2013] ORDERED BY SIOBHAN JORGE. INSTANTIZER OPERATOR Medications Adderall XR 25 mg oral capsule, extended release 1 capsule = 25 mg, By Mouth, Daily in AM, DX: F90.9, # 30 capsule, 0 Refills, Maintenance, 06/22/2110:59:00 EST, CR Capsule, [facility] #[id number], 1 capsule By Mouth Daily in AM,x30 [...] 0 Refills, Soft Stop, 05/21/19 9:12:00 EST, [facility] #[id number], 164, cm, 05/21/19 8:55:00 EST, Height Start [...]
--- OUTSIDE RECORDS SUMMARY | 2022-08-18 21:29 | XMS_ITS | Continuity of Care Document ---
Author Name Unknown Organization [facility] Lucien lt Address [address] [place] [address]- Care Team Providers Care Career Center Advisor Name Role Phone Rafael PALACIO, Arik Santiago Primary Care Physician [phone] [place] [facility] [place] 12/30/19 - 01/29/20 [facility] Adult [address] [place] [address]- [facility] Allergies, Adverse Reactions, Alerts Substance Reaction [...] 1Result Comment: [05/20/2013] ORDERED BY SIOBHAN JORGE. TRUCK SPOTTER Medications Adderall XR 25 mg oral capsule, [...] 0 Refills, Soft Stop, 05/21/19 9:12:00 EST, [facility] #[id number], 164, cm, 05/21/19 8:55:00 EST, Height Start [...]
--- OUTSIDE RECORDS SUMMARY | 2022-08-18 21:29 | XMS_ITS | Continuity of Care Document ---
Author Name Unknown Organization [facility] Lucien lt Address [address] [place] [address]- Care Team Providers Care Outreach And Education Social Worker Name Role Phone Lela PURIFICATION OPERATORTierra Primary Care Physician [facility]counter [facility] Date(s): 02/05/22 - 03/07/22 [facility] Adult [address] [place] [address]- Allergies, Adverse Reactions, Alerts Substance Reaction Severity [...] 1Result Comment: [05/20/2013] ORDERED BY TIERRA VOGEL. PURIFICATION OPERATOR Medications Adderall XR 25 mg oral capsule, extended release 1 capsule = 25 mg, By Mouth, Daily in AM, DX: F90.9, # 30 capsule, 0 Refills, Maintenance, 02/22/2220:23:00 EDT, CR Capsule, [facility] #[id number], 1 capsule By Mouth Daily in AM,x30 days,Instr:DX: F90.9, 164, cm, 02/01/22 8:51:00 EDT, Height Start Date: 02/21/22 Stop Date: 03/23/22 Status: Ordered EpiPen 2-Janusz 0.3 mg injectable kit = 0.3 mg, Intramuscular, Once, as instructed may repeat if necessary, # 1 each, 0 Refills, Soft Stop, 05/21/19 9:12:00 EST, [facility] #[id number], 164, cm, 05/21/19 8:55:00 EST, Height Start Date: 05/21/19 Status: Ordered Valtrex 1 gm oral tablet 1 tablet = 1 Gm, By Mouth, Daily, for 90 days, # 90 tablet, 0 Refills, Acute 04/21/22 7:14:00 EST, 01/21/22 7:14:00 EDT, Tablet, [facility] #[id number], 164, cm, 10/26/21 11:15:00 EDT, Height Start Date: 01/21/22 Stop Date: 04/21/22 Status: Ordered Vitamin B12 1000 mcg oral tablet 1 tablet = 1,000 mcg, By Mouth, Daily, # 90 tablet, 1 Refills, Maintenance, 02/01/22 9:06:00 EDT, Tablet, [facility] #[id number], 164, cm, 02/01/22 8:51:00 EDT, Height Start [...] Associate Professional Member Role: PCP Address: Address: [address] [place] [address]- Care Team Related Persons Name: HELEN NOBLES Address: home [address] [place] [address] Name: DRAGAN AMARO Address: home [address] [place] [address]
--- OUTSIDE RECORDS SUMMARY | 2022-08-18 21:29 | XMS_ITS | Continuity of Care Document ---
Author Name Unknown Organization [facility] Lucien lt Address [address] [place] [address]- Care Team Providers Care Table Lever Operator Name Role Phone Arik Hall MD Primary Care Physician [phone] [place] [facility] [place](s): 06/15/19 - 06/22/19 [facility] Adult [address] [place] [address]- [facility] Encounter Diagnosis ADHD(Discharge Diagnosis) - 06/15/19 H/O angioedema(Discharge Diagnosis) - 06/15/19 Attending Physician: Arik Hall MD Allergies, Adverse [...] 1Result Comment: [05/20/2013] ORDERED BY SIOBHAN JORGE. DIRECTOR SEARCH MARKETING STRATEGIES Medications Adderall XR 25 mg oral capsule, extended release 1 capsule = 25 mg, By Mouth, Daily in AM, DX: F90.9, # 30 capsule, 0 Refills, Maintenance, 06/22/2011:36:00 EST, CR Capsule, [facility] #[id number], 1 capsule By Mouth Daily in AM,x30 days,Instr:DX: F90.9, 06/26/19, 164, cm, 06/15/19 8:52:00 EST... Start Date: 06/22/19 Stop Date: 07/22/19 Status: Ordered Monika Allergy 60 mg oral [...] 0 Refills, Soft Stop, 05/21/19 9:12:00 EST, [facility] #[id number], 164, cm, 05/21/19 8:55:00 EST, Height Start [...] Dates Health Status Cl inical Service Informant ADHD Discharge Diagnosis 06/15/19 H/O angioedema Discharge Diagnosis 06/15/19 Vital Signs Most recent to oldest [Reference Range]: 1 Height 164.00 cm (06/15/19 8:52 AM) Weight 54.1 kg (06/15/19 8:52 AM) Oxygen Saturation [94-100 %] 97 % (06/15/19 8:52 AM) Pulse Rate [55-90 bpm] 84 bpm (06/15/19 8:52 AM) Body Mass Index [18.5-24.99] 20.11 (06/15/19 8:52 AM) Blood Pressure [90-138/55-84 mm Hg] 112/ 78mm Hg (06/15/19 8:52 AM) Respiratory Rate [16-30 br/min] 16 br/mi n (06/15/19 8:52 AM) Temperature [96.8-100.4 DegF] 97.9 DegF (06/15/19 8:52 AM) Blood pressure sites Arm, left (06/15/19 8:52 AM) Temperature Route Oral (06/15/19 8:52 AM) Social History Social History Type Response Smoking Status Never smoker entered on: 05/20/13 Sex
--- OUTSIDE RECORDS SUMMARY | 2022-08-18 21:29 | XMS_ITS | Continuity of Care Document ---
Author Name Unknown Organization [facility] Lucien lt Address [address] [place] [address]- Care Team Providers Care Water Pumping Station Engineer Name Role Phone Arik Hall MD Primary Care Physician [place] [facility] [place](s): 10/14/19 - 10/21/19 [facility] Adult [address] [place] [address]- [place] Encounter Diagnosis ADHD(Discharge Diagnosis) - 10/12/19 H/O angioedema(Discharge Diagnosis) - 10/12/19 Leukopenia(Discharge Diagnosis) - 10/14/19 Attending Physician: Arik Hall MD Allergies, Adverse [...] 1Result Comment: [05/20/2013] ORDERED BY SIOBHAN JORGE. ASSISTANT CLINICAL DIRECTOR Medications Adderall XR 25 mg oral capsule, extended release 1 capsule = 25 mg, By Mouth, Daily in AM, DX: F90.9, # 30 capsule, 0 Refills, Maintenance, 09/21/2011:00:00 EDT, CR Capsule, [facility] #[id number], 1 capsule By Mouth Daily in AM,x30 days,Instr:DX: F90.9, 09/24/19, 164, cm, 06/15/19 8:52:00 EST... Start Date: 09/21/19 Stop Date: 10/21/19 Status: Ordered EpiPen 2-Janusz 0.3 mg injectable kit See Instructions, Intramuscular Once may repeat if necessary, # 1 Doses, 0 Refills, Soft Stop, 10/15/16 16:38:24 Start Date: 10/15/16 Status: Ordered EpiPen 2-Janusz 0.3 mg injectable kit = 0.3 mg, Intramuscular, Once, as instructed may repeat if necessary, # 1 each, 0 Refills, Soft Stop, 05/21/19 9:12:00 EST, [facility] #[id number], 164, cm, 05/21/19 8:55:00 EST, Height Start Date: 05/21/19 Status: Ordered Problem List Condition Effective Dates Status Health Status Inform ant ADHD(Confirmed) 1, 2 Active Developmental Dyslexia(Confirmed) 3 Active H/O angioedema(Confirmed) Active Lymphocytosis since 2010(Confirmed) Active 1well documented pediatric chart 2dyslexia 3per pediatricain Diagnosis Diagnosis Type Effective Dates Health Status Cl inical Service Informant ADHD Discharge Diagnosis 10/12/19 H/O angioedema Discharge Diagnosis 10/12/19 Leukopenia Discharge Diagnosis 10/14/19 Vital Signs Most recent to oldest [Reference Range]: 1 Height 164.00 cm (10/14/19 8:21 AM) Weight 55.1 kg (10/14/19 8:21 AM) Oxygen Saturation [94-100 %] 97 % (10/14/19 8:21 AM) Pulse Rate [55-90 bpm] 96 bpm *H* (10/14/19 8:21 AM) Body Mass Index [18.5-24.99] 20.49 (10/14/19 8:21 AM) Blood Pressure [90-138/55-84 mm Hg] 100/ 70mm Hg (10/14/19 8:21 AM) Respiratory Rate [16-30 br/min] 14 br/mi n *L* (10/14/19 8:21 AM) Temperature [96.8-100.4 DegF] 98.0 DegF (10/14/19 8:21 AM) Blood pressure sites Arm, left (10/14/19 8:21 AM) Temperature Route Oral (10/14/19 8:21 AM) Social History Social History Type Response Smoking Status Never smoker entered on: 05/20/13 Sex
--- OUTSIDE RECORDS SUMMARY | 2022-08-18 21:30 | XMS_ITS | Continuity of Care Document ---
Author Name Unknown Organization [facility] Lucien lt Address [address] [place] [address]- Care Team Providers Care Cigarette Machine Filler Name Role Phone Rafael PALACIO, Arik Santiago Primary Care Physician [facility] Date(s): 01/06/20 - 02/05/20 [facility] Adult [address] [place] [address]- [facility] Allergies, Adverse Reactions, Alerts Substance [...] 1Result Comment: [05/20/2013] ORDERED BY SIOBHAN JORGE. TRANSPLANT RN Medications Adderall XR 25 mg oral capsule, [...] 0 Refills, Soft Stop, 05/21/19 9:12:00 EST, [facility] #[id number], 164, cm, 05/21/19 8:55:00 EST, Height Start [...] Date: 02/11/20 Status: Ordered polymyxin B-trimethoprim ophthalmic 09349 u-1 mg/ml solution See Instructions, 1 drops [...]
--- OUTSIDE RECORDS SUMMARY | 2022-08-18 21:30 | XMS_ITS | Continuity of Care Document ---
Author Name Unknown Organization [facility] [place] Lucien Address [address] [place] [address]- Care Team Providers Care Timber Supervisor Name Role Phone Lela Tierra FARRELL Primary Care Physician [phone] Encounter [facility] Date(s): 06/08/22 - 07/08/22 [facility] [place] Adult [address] [place] [address]- Allergies, Adverse Reactions, Alerts Substance Reaction Severity [...] 1Result Comment: [05/20/2013] ORDERED BY TIERRA VOGEL. INSTALLMENT DEALER Medications Adderall XR 25 mg oral capsule, extended release 1 capsule = 25 mg, By Mouth, Daily in AM, DX: F90.9, # 30 capsule, 0 Refills, Maintenance, :00:00 EST, CR Capsule, [facility] #[id number], 1 capsule By Mouth Daily in AM,x30 days,Instr:DX: F90.9, 164, cm, 02/01/22 8:51:00 EDT, Height Start Date: 06/21/22 Stop Date: 07/21/22 Status: Ordered albendazole 200 mg oral tablet 2 tablet = 400 mg, By Mouth, Every 14 days, # 4 tablet, 0 Refills, Acute 08/06/22 12:00:00 EDT, 07/05/22 10:13:00 EDT, Tablet, [facility] #[id number], 164, cm, 07/05/22 10:02:00 EDT, Height Start Date: 07/05/22 Stop Date: 08/06/22 Status: Ordered EpiPen 2-Janusz 0.3 mg injectable kit = 0.3 mg, Intramuscular, Once, as instructed may repeat if necessary, # 1 each, 0 Refills, Soft Stop, 05/21/19 9:12:00 EST, [facility] #[id number], 164, cm, 05/21/19 8:55:00 EST, Height Start Date: 05/21/19 Status: Ordered Valtrex 1 gm oral tablet 1 tablet = 1 Gm, By Mouth, Daily, for 90 days, # 90 tablet, 0 Refills, Acute 09/12/22 13:29:00 EDT,06/14/22 13:29:00 EST, Tablet, [facility] #[id number], 164, cm, 02/01/22 8:51:00 EDT, Height Start Date: 06/14/22 Stop Date: 09/12/22 Status: Ordered Vitamin B12 1000 mcg oral tablet 1 tablet = 1,000 mcg, By Mouth, Daily, # 90 tablet, 1 Refills, Maintenance, 05/15/22 10:58:00 EST, Tablet, [facility] #[id number], 164, cm, 02/01/22 8:51:00 EDT, Height Start [...] Associate Professional Member Role: PCP Address: Address: [address] [place] [address]- Care Team Related Persons Name: HELEN NOBLES Address: home [address] [place] [address] Name: DRAGAN AMARO Address: home [address] [place] [address]
--- OUTSIDE RECORDS SUMMARY | 2022-08-18 21:30 | XMS_ITS | Continuity of Care Document ---
Author Name Unknown Organization [facility] Lucien lt Address [address] [place] [address]- Care Team Providers Care Bisque Brusher Name Role Phone Rafael PALACIO, Arik Santiago Primary Care Physician [phone] [place] [facility] [place] 07[place]17[place]21 [place] 08/16/21 [facility] Adult [address] [place] [address]- Allergies, Adverse Reactions, Alerts Substance Reaction Severity [...] 1Result Comment: [05/20/2013] ORDERED BY SIOBHAN JORGE. EXPERT WITNESS Medications Adderall XR 25 mg oral capsule, extended release 1 capsule = 25 mg, By Mouth, Daily in AM, DX: F90.9, # 30 capsule, 0 Refills, Maintenance, :57:00 EDT, CR Capsule, [facility] #[id number], 1 capsule By Mouth Daily in AM,x30 days,Instr:DX: F90.9, 164, cm, 01/26/21 7:05:00 EDT, Height Start Date: 08/02/21 Stop Date: 09/01/21 Status: Ordered EpiPen 2-Janusz 0.3 mg injectable kit = 0.3 mg, Intramuscular, Once, as instructed may repeat if necessary, # 1 each, 0 Refills, Soft Stop, 05/21/19 9:12:00 EST, [facility] #[id number], 164, cm, 05/21/19 8:55:00 EST, Height Start Date: 05/21/19 Status: Ordered erythromycin 0.5% ophthalmic ointment 0.5 inches, Eye, Left, 4 times a day, for 5 days, follow-up with your eye doctor if not better in 5days, # 3.5 Gm, 0 Refills, Acute 08/20/21 14:17:00 EDT, 08/15/21 14:17:00 EDT, Ophth Ointment, [facility] #[id number], 0.5 inches Eye, Left 4 time... Start Date: 08/15/21 Stop Date: 08/20/21 Status: Ordered [place]-3 Fish Oil = 1,000 mg, By Mouth, Daily, 0 Refills, Maintenance, 07/28/21 7:19:00 EDT Start Date: 07/28/21 Status: Ordered Valtrex 1 gm oral tablet 1 tablet = 1 Gm, By Mouth, Daily, for 90 days, # 90 tablet, 0 Refills, Acute 10/23/21 7:14:00 EDT, 07/25/21 7:14:00 EDT, Tablet, [facility] #[id number], 164, cm, 01/26/21 7:05:00 EDT, Height Start [...]
--- OUTSIDE RECORDS SUMMARY | 2022-08-18 21:30 | XMS_ITS | Continuity of Care Document ---
Author Name Unknown Organization [facility] [place] Lucien Address [address] [place] [address]- Care Team Providers Care Real Estate Sales Supervisor Name Role Phone Rafael PALACIO, Arik Santiago Primary Care Physician [facility] Date(s): 10/30/21 - 11/29/21 [facility] [place] Adult [address] [place] [address]- Allergies, Adverse Reactions, Alerts Substance Reaction Severity [...] 1Result Comment: [05/20/2013] ORDERED BY SIOBHAN JORGE. CALL SPECIALIST Medications Adderall XR 25 mg oral capsule, extended release 1 capsule = 25 mg, By Mouth, Daily in AM, DX: F90.9, # 30 capsule, 0 Refills, Maintenance, 11/28/2211:00:00 EDT, CR Capsule, [facility] #[id number], 1 capsule By Mouth Daily in AM,x30 days,Instr:DX: F90.9, 164, cm, 10/26/21 11:15:00 EDT, Height Start Date: 11/27/21 Stop Date: 12/27/21 Status: Ordered EpiPen 2-Janusz 0.3 mg injectable kit = 0.3 mg, Intramuscular, Once, as instructed may repeat if necessary, # 1 each, 0 Refills, Soft Stop, 05/21/19 9:12:00 EST, [facility] #[id number], 164, cm, 05/21/19 8:55:00 EST, Height Start Date: 05/21/19 Status: Ordered [place]-3 Fish Oil = 1,000 mg, By Mouth, Daily, 0 Refills, Maintenance, 07/28/21 7:19:00 EDT Start Date: 07/28/21 Status: Ordered Valtrex 1 gm oral tablet 1 tablet = 1 Gm, By Mouth, Daily, for 90 days, # 90 tablet, 0 Refills, Acute 01/21/22 7:14:00 EDT, 10/23/21 7:14:00 EDT, Tablet, [facility] #[id number], 164, cm, 07/28/21 7:07:00 EDT, Height Start [...]
--- OUTSIDE RECORDS SUMMARY | 2022-08-18 21:30 | XMS_ITS | Continuity of Care Document ---
Author Name Unknown Organization [facility] Lucien lt Address [address] [place] [address]- Care Team Providers Care Inverter And Clipper Name Role Phone Tierra Jorge NP Primary Care Physician [place] [facility] [place] 08/07/22 [facility] Adult [address] [place] [address]- Encounter Diagnosis Annual physical exam(Discharge Diagnosis) - 07/30/22 ADHD(Discharge Diagnosis) - 07/31/22 Vitamin B12 deficiency(Discharge Diagnosis) - 07/31/22 Attending Physician: Tierra Jorge NP Referring Physician: Rafael PALACIO, Arik Santiago [...] 1Result Comment: [05/20/2013] ORDERED BY TIERRA JORGE. DICTAPHONE MECHANIC Medications Adderall XR 25 mg oral capsule, extended release 1 capsule = 25 mg, By Mouth, Daily in AM, DX: F90.9, # 30 capsule, 0 Refills, Maintenance, 230:00:00 EDT, CR Capsule, [facility] #[id number], 1 capsule By Mouth Daily in AM,x30 days,Instr:DX: F90.9, 07/21/22, 164, cm, 07/05/22 10:02:00 EDT... Start Date: 07/21/22 Stop Date: 08/20/22 Status: Ordered EpiPen 2-Janusz 0.3 mg injectable kit = 0.3 mg, Intramuscular, Once, as instructed may repeat if necessary, # 1 each, 0 Refills, Soft Stop, 05/21/19 9:12:00 EST, [facility] #[id number], 164, cm, 05/21/19 8:55:00 EST, Height Start Date: 05/21/19 Status: Ordered Valtrex 1 gm oral tablet 1 tablet = 1 Gm, By Mouth, Daily, for 90 days, # 90 tablet, 0 Refills, Acute 09/12/22 13:29:00 EDT,06/14/22 13:29:00 EST, Tablet, [facility] #[id number], 164, cm, 02/01/22 8:51:00 EDT, Height Start Date: 06/14/22 Stop Date: 09/12/22 Status: Ordered Vitamin B12 1000 mcg oral tablet 1 tablet = 1,000 mcg, By Mouth, Daily, # 90 tablet, 1 Refills, Maintenance, 05/15/22 10:58:00 EST, Tablet, [facility] #[id number], 164, cm, 02/01/22 8:51:00 EDT, Height Start [...] Service Informant Annual physical exam Discharge Diagnosis 07/30/22 ADHD Discharge Diagnosis 07/31/22 Vitamin B12 deficiency Discharge Diagnosis 07/31/22 Vital Signs Most recent to oldest [Reference Range]: 1 Height 164.00 cm (07/31/22 7:11 AM) Weight 54.2 kg (07/31/22 7:11 AM) Oxygen Saturation [94-100 %] 99 % (07/31/22 7:11 AM) Pulse Rate [55-90 bpm] 85 bpm (07/31/22 7:11 AM) Body Mass Index [18.5-24.99 kg/m2] 20.15 kg/m2 (07/31/22 7:11 AM) Blood Pressure [90-138/55-84 mm Hg] 118/ 72mm Hg (07/31/22 7:11 AM) Mode of Delivery (Oxygen) Room air (07/31/22 7:11 AM) Blood pressure sites Arm, right (07/31/22 7:11 AM) Weight Obtained Via Standing scale (07/31/22 7:11 AM) Social History Social History Type Response Smoking Status Never smoker entered on: 05/20/13 Sex Note * Laura Mullen: PERFORM, SIGN, VERIFY Event Display: Patient Education/Instruction Authored Date: [id number] [facility] *ROBERT So Homer Almeida Clinical Summary Name JADE ARMANDO Age 32 Years 1990 PCP Tierra Jorge NP PCP Visit Date 07/31/2022 07:06:00 Additional Instructions: Scheduled Appointments?? Future Appointments ?No Future Appointments Scheduled Follow-Up Instructions ?? With: Address: When: Lela FARRELL, Tierra Knowles In 6 months Diagnosis Deficiency of other specified B group vitamins; Encounter for general adult medical examination without abnormal findings; Attention-deficit hyperactivity disorder, unspecified type Medications: Please continue your medications until treatment is completed or stopped by your provider. Discuss any questions related to medications with your provider. Medications to Continue with No Changes These medications were not printed or sent to your pharmacy Albendazole (albendazole 200 mg oral tablet) 2 tab(s) Oral Every 14 days. Refills: 0. Next Dose: Amphetamine-Dextroamphetamine (Adderall XR 25 mg oral capsule, extended release) 1 capsule Oral Daily in the morning for 30 Days. DX: F90.9. Refills: 0. Next Dose: Cyanocobalamin (Vitamin B12 1000 mcg oral tablet) 1 tab(s) Oral Daily. Refills: 1. Next Dose: Epinephrine (EpiPen 2-Janusz 0.3 mg injectable kit) 0.3 Milligram Intramuscular once. as instructed may repeat if necessary. Refills: 0. Next Dose: ValACYclovir (Valtrex 1 gm oral tablet) 1 tab(s) Oral Daily for 90 Days. Refills: 0. Next Dose: Allergy Info:?? Vicodin ES; sulfADIAZINE; codeine Medications Given This Visit Future Orders ?C. difficile Rapid Toxin Assay? Order Date:07/31/22?- Complete on or after?07/31/22 ?Ova and Parasite Exam? Order Date:07/31/22?- Complete on or after?07/31/22 ?Routine Culture, Stool? Order Date:07/31/22?- Complete on or after?07/31/22 ?Fecal Leukocyte Stain? Order Date:07/31/22?- Complete on or after?07/31/22 ?CBC? Order Date:07/31/22?- Complete on or after?07/31/22 ?Vitamin B12 Level? Order Date:07/31/22?- Complete on or after?07/31/22 ?Comprehensive Metabolic Panel? Order Date:07/31/22?- Complete on or after?07/31/22 Vital Signs Height 164.00 cm Weight 54.2 kg BMI 20.15 kg/m2 Blood Pressure 118 mm Hg/72 mm Hg Temperature Pulse Rate 85 bpm Respiratory Rate 02 Sat Mode of Delivery 99 %/Room air You can now view a summary of your hospital visit from the comfort of your home through a free online portal called [employer] is a website that allows you to securely view your medical information including discharge summary, medications and follow-up visits. ??You can alsosend a secure electronic message to your doctor???s office to request appointments, renew medications or just ask a question. You can enroll at [email or web address] or register during your next office visit. Disclaimer:?? The information provided is of a general nature and is intended to be used in conjunction with the recommendations and advice of your health care practitioner. ??Every effort has been made to ensure that the information provided is accurate and complete at the time it is provided to you however, as your needs change, or, as new ??information becomes available, different or additional instructions may be required. If you have questions, please consult with your primary care provider or pharmacist, as appropriate. ??This information is not intended to serve as substitution for assessment and evaluation by a qualified health care provider. If you do not have a primary care provider, you may find a [facility] provider by calling [facility] at [phone]. For information about the plan of care including goals and instructions for your diagnosis, please see the patient education orders section of this document. Patient Education Materials?? The content of this educational material or handout may have been modified, supplemented, or adapted from its original content and format to support your individualized medical care. Prevention Guidelines,??Women Ages 18 to 39 Screening tests and vaccines are an important part of managing your health. Health counseling is essential, too. Below are guidelines for these, for women ages 18 to 39. Talk with your healthcare provider to make sure you???re up-to-date on what you need. Screening Who needs it How often Alcohol misuse All women in this age group At routine exams Blood pressure All women in this age group Every 2 years if your blood pressure is less than 120/80 mm Hg; yearly if your systolic blood pressure is 120 to 139 mm Hg, or your diastolic blood pressure reading is 80 to 89 mm Hg Breast cancer All women in this age group should talk with their healthcare providers about the need for clinicalbreast exams (CBE)1 Clinical breast exam every 3 years1 Cervical cancer Women ages 21 and older Women between ages 21 and 29 should have a Pap test every 3 years; women between ages 30 and 65 areadvised to have a Pap test plus an HPV test every 5 years Chlamydia Sexually active women ages 24 and younger, and women at increased risk for infection Every 3 years if you're at risk or have symptoms Depression All women in this age group At routine exams Diabetes mellitus, type 2 Adults with no symptoms who are overweight or obese and have 1 or more other risk factors for diabetes At least every 3 years Gonorrhea Sexually active women at increased risk for infection At routine exams Hepatitis C Anyone at increased risk At routine exams HIV All women At routine exams Obesity All women in this age group At routine exams Syphilis Women at increased risk for infection ??? talk with your healthcare provider At routine exams Tuberculosis Women at increased risk for infection ??? talk with your healthcare provider Ask your healthcare provider Vision All women in this age group At least 1 complete exam in your 20s, and 2 in your 30s Vaccine2 Who needs it How often Chickenpox (varicella) All women in this age group who have no record of this infection or vaccine 2 doses; the second dose should be given 4 to 8 weeks after the first dose Hepatitis A Women at increased risk for infection ??? talk with your healthcare provider 2 doses given at least 6 months apart Hepatitis B Women at increased risk for infection ??? talk with your healthcare provider 3 doses over 6 months; second dose should be given 1 month after the first dose; the third dose should be given at least 2 months after the second dose and at least 4 months after the first dose Haemophilus influenzae??Type B (HIB) Women at increased risk for infection ??? talk with your healthcare provider 1 to 3 doses Human papillomavirus (HPV) All women in this age group up to age 26 3 doses; the second dose should be given 1 to 2 months after the first dose and the third dose given 6 months after the first dose Influenza (flu) All women in this age group Once a year Measles, mumps, rubella (MMR) All women in this age group who have no record of these infections or vaccines 1 or 2 doses Meningococcal Women at increased risk for infection ??? talk with your healthcare provider 1 or more doses Pneumococcal conjugate vaccine (PCV13)??and pneumococcal polysaccharide??vaccine??(PPSV23) Women at increased risk for infection ??? talk with your healthcare provider PCV13: 1 dose ages 19 to 65 (protects against 13 types of pneumococcal bacteria) PPSV23: 1 to??2 doses through age 64, or 1 dose at 65 or older (protects against 23 types of pneumococcal bacteria) Tetanus/diphtheria/pertussis (Td/Tdap) booster All women in this age group Td every 10 years, or a one-time dose of Tdap instead of a Td booster after age 18, then Td every 10 years Counseling Who needs it How often BRCA gene mutation testing for breast and ovarian cancer susceptibility Women with increased risk for having gene mutation When your risk is known Breast cancer and chemoprevention Women at high risk for breast cancer When your risk is known Diet and exercise Women who are overweight or obese When diagnosed, and then at routine exams Domestic violence Women at the age in which they are able to have children At routine exams Sexually transmitted infection prevention Women who are sexually active At routine exams Skin cancer Prevention of skin cancer in fair-skinned adults through age 24 At routine exams Use of tobacco and the health effects it can cause All women in this age group Every visit 1According to the ACS, women ages 20 to 39 years should have a clinical breast exam (CBE) as part of their routine health exam every 3 years, and breast self- exams are an option for women starting intheir 20s.??However, the ??USPSTF does not recommend CBE. 2Those who are 18 years of age, who are not up-to-date on their childhood immunizations, should receive all appropriate catch-up vaccines recommended by the CDC. ?? 6946-[address] [employer] [place] [address]. All rights reserved. This information is not intended as a substitute for professional medical care. Always follow your healthcare professional's instructions. Patient Care team information Care Team Personnel Name: Tierra Jorge NP Position: S PCO Associate Professional Member Role: PCP Address: Address: [address] [place] [address]- Care Team Related Persons Name: HELEN NOBLES Address: home [address] [place] [address] Name: DRAGAN AMARO Address: home [address] [place] [address]
--- OUTSIDE RECORDS SUMMARY | 2022-08-18 21:30 | XMS_ITS | Continuity of Care Document ---
Author Name Unknown Organization [facility] Address [address] [facility] [place] [address]- Care Team Providers Care Stud Beef Cattle Farmer Name Role Phone Rafael PALACIO, Arik Santiago Primary Care Physician [phone] [place] [facility] [place](s[place] 01/27/20 - 02/03/20 [facility] [address] [place] [address]- [facility] Attending Physician: Pranav Solorzano MD Admitting Physician: Pranav Solorzano MD Referring Physician: Wilbert FARRELL, Radha Morales Allergies, Adverse [...] 1Result Comment: [05/20/2013] ORDERED BY SIOBHAN JORGE. PORTFOLIO ASSISTANT Medications Adderall XR 25 mg oral [...] 0 Refills, Soft Stop, 05/21/19 9:12:00 EST, [facility] #[id number], 164, cm, 05/21/19 8:55:00 EST, Height Start Date: 05/21/19 Status: Ordered Problem List Condition Effective Dates Status Health Status Inform ant ADHD(Confirmed) 1, 2 Active Developmental Dyslexia(Confirmed) 3 Active H/O angioedema(Confirmed) Active Lymphocytosis since 2010(Confirmed) Active 1well documented pediatric chart 2dyslexia 3per pediatricain Vital Signs Most recent to oldest [Reference Range]: 1 Height 164.00 cm (01/27/20 9:59 AM) Weight 52.7 kg (01/27/20 9:59 AM) Pulse Rate [55-90 bpm] 96 bpm *H* (01/27/20 9:59 AM) Body Mass Index [18.5-24.99] 19.59 (01/27/20 9:59 AM) Blood Pressure [90-138/55-84 mm Hg] 25/8 5mm Hg *L* (01/27/20 9:59 AM) Respiratory Rate [16-30 br/min] 14 br/mi n *L* (01/27/20 9:59 AM) Temperature [96.8-100.4 DegF] 98.1 DegF (01/27/20 9:59 AM) Blood pressure sites Arm, right (01/27/20 9:59 AM) Temperature Route Oral (01/27/20 9:59 AM) Weight Obtained Via Standing scale (01/27/20 9:59 AM) Social History Social History Type Response Smoking Status Never smoker entered on: 05/20/13 Sex
--- OUTSIDE RECORDS SUMMARY | 2022-08-18 21:30 | XMS_ITS | Continuity of Care Document ---
Author Name Unknown Organization [facility] Lucien Address [address] [place] [address]- Care Team Providers Care Customer Care Assistant Name Role Phone Rafael PALACIO, Arik Santiago Primary Care Physician [phone] Encounter [facility] Date(s): 04/12/21 - 05/12/21 [facility] Adult [address] [place] [address]- Allergies, Adverse Reactions, Alerts Substance Reaction Severity [...] 1Result Comment: [05/20/2013] ORDERED BY SIOBHAN JORGE. PRICE ACCURACY SUPERVISOR Medications Adderall XR 25 mg oral capsule, extended release 1 capsule = 25 mg, By Mouth, Daily in AM, DX: F90.9, # 30 capsule, 0 Refills, Maintenance, 05/09/2211:02:00 EST, CR Capsule, [facility] #[id number], 1 capsule By Mouth Daily in AM,x30 days,Instr:DX: F90.9, 164, cm, 01/26/21 7:05:00 EDT, Height Start Date: 05/09/21 Stop Date: 06/08/21 Status: Ordered EpiPen 2-Janusz 0.3 mg injectable kit = 0.3 mg, Intramuscular, Once, as instructed may repeat if necessary, # 1 each, 0 Refills, Soft Stop, 05/21/19 9:12:00 EST, [facility] #[id number], 164, cm, 05/21/19 8:55:00 EST, Height Start Date: 05/21/19 Status: Ordered Valtrex 1 gm oral tablet 1 tablet = 1 Gm, By Mouth, Daily, for 90 days, # 90 tablet, 0 Refills, Acute 07/25/21 7:14:00 EDT, 04/26/21 7:14:00 EST, Tablet, [facility] #[id number], 164, cm, 01/26/21 7:05:00 EDT, Height Start Date: 04/26/21 Stop Date: 07/25/21 Status: Ordered Vitamin B12 1000 mcg oral tablet 1 tablet = 1,000 mcg, By Mouth, Daily, # 90 tablet, 1 Refills, Maintenance, 01/17/21 13:16:00 EDT, Tablet, [facility] #[id number], Partial fill upon patient request if the [...]
--- OUTSIDE RECORDS SUMMARY | 2022-08-18 21:30 | XMS_ITS | Continuity of Care Document ---
Author Name Unknown Organization [facility] Lucien Address [address] [place] [address]- Care Team Providers Care Glass Carrier Name Role Phone Lela Tierra FARRELL Primary Care Physician [phone] Encounter [facility] Date(s): 06/20/22 - 07/20/22 [facility] Adult [address] [place] [address]- Allergies, Adverse Reactions, Alerts Substance Reaction Severity [...] 1Result Comment: [05/20/2013] ORDERED BY TIERRA VOGEL. GLASS SETTER Medications Adderall XR 25 mg oral capsule, extended release 1 capsule = 25 mg, By Mouth, Daily in AM, DX: F90.9, # 30 capsule, 0 Refills, Maintenance, :00:00 EDT, CR Capsule, [facility] #[id number], 1 capsule By Mouth Daily in AM,x30 days,Instr:DX: F90.9, 07/21/22, 164, cm, 07/05/22 10:02:00 EDT... Start Date: 07/21/22 Stop Date: 08/20/22 Status: Ordered albendazole 200 mg oral tablet 2 tablet = 400 mg, By Mouth, Every 14 days, # 4 tablet, 0 Refills, Acute 08/06/22 12:00:00 EDT, 07/05/22 10:13:00 EDT, Tablet, [facility] #[id number], 164, cm, 07/05/22 10:02:00 EDT, Height Start Date: 07/05/22 Stop Date: 08/06/22 Status: Ordered EpiPen 2-Janusz 0.3 mg injectable kit = 0.3 mg, Intramuscular, Once, as instructed may repeat if necessary, # 1 each, 0 Refills, Soft Stop, 05/21/19 9:12:00 EST, [facility] #[id number], 164, cm, 05/21/19 8:55:00 EST, Height Start Date: 05/21/19 Status: Ordered Valtrex 1 gm oral tablet 1 tablet = 1 Gm, By Mouth, Daily, for 90 days, # 90 tablet, 0 Refills, Acute 09/12/22 13:29:00 EDT,06/14/22 13:29:00 EST, Tablet, [facility] #[id number], 164, cm, 02/01/22 8:51:00 EDT, Height Start Date: 06/14/22 Stop Date: 09/12/22 Status: Ordered Vitamin B12 1000 mcg oral tablet 1 tablet = 1,000 mcg, By Mouth, Daily, # 90 tablet, 1 Refills, Maintenance, 05/15/22 10:58:00 EST, Tablet, [facility] #[id number], 164, cm, 02/01/22 8:51:00 EDT, Height Start [...] oldest [Reference Range]: 1 Height 164.00 cm (07/05/22 9:51 AM) Social History Social History Type Response Smoking Status Never smoker entered on: 05/20/13 Sex Patient Care team information Care Team Personnel Name: Tierra Vogel NP Position: [facility] PCO Associate Professional Member Role: PCP Address: Address: [address] [place] [address]- Care Team Related Persons Name: HELEN NOBLES Address: home [address] [place] [address] Name: DRAGAN AMARO Address: home [address] [place] [address]
--- OUTSIDE RECORDS SUMMARY | 2022-08-18 21:30 | XMS_ITS | Continuity of Care Document ---
Author Name Unknown Organization [facility] Address [address] [place] [address]- Care Team Providers Care Field Hauler Name Role Phone Arik Hall MD Primary Care Physician [phone] Encounter [facility] Date(s): 10/18/20 - 10/25/20 [facility] Adult [address] [place] [address]- Encounter Diagnosis Recurrent herpes labialis(Discharge Diagnosis) - 10/18/20 Attending Physician: Not on Staff, Attending MD Referring Physician: Arik Hall MD Allergies, Adverse [...] 1Result Comment: [05/20/2013] ORDERED BY SIOBHAN JORGE. SLEEVE SETTER LOCKSTITCH Medications Adderall XR 25 mg oral capsule, extended release 1 capsule = 25 mg, By Mouth, Daily in AM, DX: F90.9, # 30 capsule, 0 Refills, Maintenance, 10/25/2113:38:00 EDT, CR Capsule, [facility] #[id number], 1 capsule By Mouth Daily in AM,x30 days,Instr:DX: F90.9, 164, cm, 07/27/20 7:11:00 EDT, Height Start Date: 10/25/20 Stop Date: 11/24/20 Status: Ordered EpiPen 2-Janusz 0.3 mg injectable kit = 0.3 mg, Intramuscular, Once, as instructed may repeat if necessary, # 1 each, 0 Refills, Soft Stop, 05/21/19 9:12:00 EST, [facility] #[id number], 164, cm, 05/21/19 8:55:00 EST, Height Start Date: 05/21/19 Status: Ordered Problem List Condition Effective Dates Status Health Status Inform ant ADHD(Confirmed) 1, 2 Active Developmental Dyslexia(Confirmed) 3 Active H/O angioedema(Confirmed) Active Herpes labialis(Confirmed) Active Lymphocytosis since 2010(Confirmed) Active 1well documented pediatric chart 2dyslexia 3per pediatricain Diagnosis Diagnosis Type Effective Dates Health Status Cl inical Service Informant Recurrent herpes labialis Discharge Diagnosis 10/18/20 Social History Social History Type Response Smoking Status Never smoker entered on: 05/20/13 Sex
--- OUTSIDE RECORDS SUMMARY | 2022-08-18 21:30 | XMS_ITS | Continuity of Care Document ---
Author Name Unknown Organization [facility] Address [address] [place] [address]- Care Team Providers Care Broadcasting Equipment Mechanic Name Role Phone Rafael PALACIO, Arik Santiago Primary Care Physician [phone] Encounter [facility] Date(s): 11/10/21 - 12/10/21 [facility] Adult [address] [place] [address]- Allergies, Adverse Reactions, Alerts Substance Reaction Severity Status codeine Active sulfADIAZINE Active Vicodin ES Active Immunizations Given and Recorded Vaccine Date Status Refusal Reason SARS-CoV-2 (COVID-19) mRNA-1273 vaccine 09/13/20 R ecorded SARS-CoV-2 (COVID-19) mRNA-1273 vaccine 08/20/20 R ecorded SARS-CoV-2 (COVID-19) mRNA-1273 vaccine 08/16/20 R ecorded SARS-CoV-2 (COVID-19) mRNA-1273 vaccine 07/21/20 R ecorded tetanus-diphtheria toxoids (Td) 05/21/19 Given influenza virus vaccine, inactivated 05/08/19 Daneil rded influenza virus vaccine, inactivated 05/05/15 Daniel [...] 1Result Comment: [05/20/2013] ORDERED BY SIOBHAN JORGE. RN NEUROLOGY Medications Adderall XR 25 mg oral capsule, extended release 1 capsule = 25 mg, By Mouth, Daily in AM, DX: F90.9, # 30 capsule, 0 Refills, Maintenance, 11/28/2211:00:00 EDT, CR Capsule, [facility] #[id number], 1 capsule By Mouth Daily in AM,x30 days,Instr:DX: F90.9, 164, cm, 10/26/21 11:15:00 EDT, Height Start Date: 11/27/21 Stop Date: 12/27/21 Status: Ordered EpiPen 2-Janusz 0.3 mg injectable kit = 0.3 mg, Intramuscular, Once, as instructed may repeat if necessary, # 1 each, 0 Refills, Soft Stop, 05/21/19 9:12:00 EST, [facility] #[id number], 164, cm, 05/21/19 8:55:00 EST, Height Start Date: 05/21/19 Status: Ordered Aldrich-3 Fish Oil = 1,000 mg, By Mouth, Daily, 0 Refills, Maintenance, 07/28/21 7:19:00 EDT Start Date: 07/28/21 Status: Ordered Valtrex 1 gm oral tablet 1 tablet = 1 Gm, By Mouth, Daily, for 90 days, # 90 tablet, 0 Refills, Acute 01/21/22 7:14:00 EDT, 10/23/21 7:14:00 EDT, Tablet, [facility] #[id number], 164, cm, 07/28/21 7:07:00 EDT, Height Start [...]
--- OUTSIDE RECORDS SUMMARY | 2022-08-18 21:30 | XMS_ITS | Continuity of Care Document ---
Author Name Unknown Organization [facility]ien lt Address [address] [place] [address]- Care Team Providers Care Spooling Supervisor Name Role Phone Rafael PALACIO, Arik Santiago Primary Care Physician [phone] Encounter [facility] [place] Date(s): 05/21/19 - 05/31/19 [facility] Adult [address] [place] [address]- [facility] Attending Physician: Karina Manriquez Admitting Physician: AdmKarina [...] 1Result Comment: [05/20/2013] ORDERED BY SIOBHAN JORGE. EVENTS SOLUTIONS CONSULTANT Medications Adderall XR 25 mg oral capsule, extended release 1 capsule = 25 mg, By Mouth, Daily in AM, DX: F90.9, # 30 capsule, 0 Refills, Maintenance, 05/21/2012:36:00 EST, CR Capsule, [facility] #[id number], 1 capsule By Mouth Daily in AM,x30 [...] 0 Refills, Soft Stop, 05/21/19 9:12:00 EST, [facility] #[id number], 164, cm, 05/21/19 8:55:00 EST, Height Start [...]
--- OUTSIDE RECORDS SUMMARY | 2022-08-18 21:30 | XMS_ITS | Continuity of Care Document ---
Author Name Unknown Organization [facility] Address [address] [place] [address]- Care Team Providers Care Aircraft Designer Name Role Phone Rafael PALACIO, Arik Santiago Primary Care Physician [facility]counter [facility] Date(s): 10/29/21 - 11/28/21 [facility] Adult [address] [place] [address]- Allergies, Adverse Reactions, Alerts Substance Reaction Severity [...] 1Result Comment: [05/20/2013] ORDERED BY SIOBHAN JORGE. COMMERCIAL TRUCK DRIVER Medications Adderall XR 25 mg oral capsule, extended release 1 capsule = 25 mg, By Mouth, Daily in AM, DX: F90.9, # 30 capsule, 0 Refills, Maintenance, 11/28/2211:00:00 EDT, CR Capsule, [facility] #[id number], 1 capsule By Mouth Daily in AM,x30 days,Instr:DX: F90.9, 164, cm, 10/26/21 11:15:00 EDT, Height Start Date: 11/27/21 Stop Date: 12/27/21 Status: Ordered EpiPen 2-Janusz 0.3 mg injectable kit = 0.3 mg, Intramuscular, Once, as instructed may repeat if necessary, # 1 each, 0 Refills, Soft Stop, 05/21/19 9:12:00 EST, [facility] #[id number], 164, cm, 05/21/19 8:55:00 EST, Height Start Date: 05/21/19 Status: Ordered [place]-3 Fish Oil = 1,000 mg, By Mouth, Daily, 0 Refills, Maintenance, 07/28/21 7:19:00 EDT Start Date: 07/28/21 Status: Ordered Valtrex 1 gm oral tablet 1 tablet = 1 Gm, By Mouth, Daily, for 90 days, # 90 tablet, 0 Refills, Acute 01/21/22 7:14:00 EDT, 10/23/21 7:14:00 EDT, Tablet, [facility] #[id number], 164, cm, 07/28/21 7:07:00 EDT, Height Start [...]
--- OUTSIDE RECORDS SUMMARY | 2022-08-18 21:30 | XMS_ITS | Continuity of Care Document ---
Author Name Unknown Organization [facility] Address [address] [place] [address]- Care Team Providers Care Linen Manager Name Role Phone Rafael PALACIO, Arik Santiago Primary Care Physician [phone] Encounter [facility] Date(s): 10/27/21 - 11/26/21 [facility] Adult [address] [place] [address]- Allergies, Adverse Reactions, Alerts Substance Reaction Severity [...] 1Result Comment: [05/20/2013] ORDERED BY SIOBHAN JORGE. NANOSCIENCE TECHNICIAN Medications Adderall XR 25 mg oral capsule, extended release 1 capsule = 25 mg, By Mouth, Daily in AM, DX: F90.9, # 30 capsule, 0 Refills, Maintenance, 10/26/2213:20:00 EDT, CR Capsule, [facility] #[id number], 1 capsule By Mouth Daily in AM,x30 days,Instr:DX: F90.9, 164, cm, 10/26/21 11:15:00 EDT, Height Start Date: 10/26/21 Stop Date: 11/25/21 Status: Ordered EpiPen 2-Janusz 0.3 mg injectable kit = 0.3 mg, Intramuscular, Once, as instructed may repeat if necessary, # 1 each, 0 Refills, Soft Stop, 05/21/19 9:12:00 EST, [facility] #[id number], 164, cm, 05/21/19 8:55:00 EST, Height Start Date: 05/21/19 Status: Ordered [place]-3 Fish Oil = 1,000 mg, By Mouth, Daily, 0 Refills, Maintenance, 07/28/21 7:19:00 EDT Start Date: 07/28/21 Status: Ordered Valtrex 1 gm oral tablet 1 tablet = 1 Gm, By Mouth, Daily, for 90 days, # 90 tablet, 0 Refills, Acute 01/21/22 7:14:00 EDT, 10/23/21 7:14:00 EDT, Tablet, [facility] #[id number], 164, cm, 07/28/21 7:07:00 EDT, Height Start [...]
--- NOTE | 2022-08-18 21:46 | ED_ITS ---
HPI - General Adult General Chief complaint: General Medical Stated complaint: dizziness/vomiting Time Seen by Provider: 08/18/22 21:39 Source: patient Mode of arrival: ambulatory Limitations: no limitations History of Present Illness HPI narrative: Patient with no significant past medical history noticed all of a sudden vertiginous feeling with any head movements with nausea and vomiting no headache no tinnitus no upper respiratory symptoms no other deficit Related Data Allergies Allergy/AdvReac Type Severity Reaction Status Date / Time Sulfa (Sulfonamide Allergy Unknown THROAT Verified 08/18/22 22:05 Antibiotics) COSES [SULFA (SULFONAMIDE ANTIBIOTICS)] codeine AdvReac Hypotension Verified 08/18/22 22:05 Review of Systems Review of Systems: Yes all other systems are reviewed and are negative [facility] Social History Social History Advance Directives: No Advance Directives Information Provided: No Physical Exam ED Vital Signs: Vital Signs - 24 hr 08/18/22 21:03 Temperature 97.8 F Pulse Rate 77 Respiratory Rate 16 Blood Pressure 128/91 H Pulse Oximetry 100 Oxygen Delivery Method Room Air BMI result Body Mass Index 19.7 Appearance: Alert. Oriented X3. No acute distress. Eyes: PERRLA, ++ Nystagmus with fast component to the left ENT: Pharynx normal. Oral Mucosa moist Neck: Normal inspection. Neck supple. CVS: Normal heart rate and rhythm. Pulses normal. Respiratory: No respiratory distress. Equal air entry bilateral, no wheezi ng/rales/rhonchi Abdomen: Soft and nontender. Bowel sounds are present, no mass palpable, no CVA tenderness Skin: Skin warm and dry. Normal skin color. Normal skin turgor. Neuro: Oriented X 3. No motor deficit. No sensory deficit.No cerebellar signs , cranial nerves II-XII intact Medications Administered Discontinued Medications Generic Name Dose Route Start Last Admin Trade Name Freq PRN Reason Stop Dose Admin Sodium Chloride 1,000 mls @ 999 mls/hr 08/18/22 21:11 08/18/22 23:27 Ns IVCONT 08/18/22 22:11 Infused .Q1H1M ONE Infusion Lorazepam 1 mg 08/19/22 00:21 08/19/22 00:44 Lorazepam 2 Mg/Ml Vial IVPUSH 08/19/22 00:22 1 mg ONCE ONE Administration Meclizine HCl 50 mg 08/18/22 21:44 08/18/22 22:06 Meclizine Hcl 25 Mg Tablet PO 08/18/22 21:45 50 mg ONCE ONE Administration Ondansetron HCl 4 mg 08/18/22 21:10 08/18/22 22:06 Ondansetron Hcl 4 Mg/2 Ml Vial IVPUSH 08/18/22 21:11 4 mg ONCE ONE Administration Medical Decision Making Medical Decision Making [facility] Narrative: Patient clinically with BPPV received meclizine and lorazepam IV feels slightly better but still unable to function or move. Will do CT scan of the head just to rule out any acute. Hospitalist aware for admission Head CT is negative for acute bleed or CVA patient is still feeling dizzy plan to admit Consult Healthcare Provider Management of the patient was discussed with: Hospitalist Lab Data [facility] Lab Attestation statement: I reviewed the patient's lab results. 08/18/22 22:02 08/18/22 22:02 Labs: Lab Results 08/18/22 08/18/22 08/18/22 Range/Units 22:02 22:02 22:02 WBC 5.1 (4.8-10.8) X10*3/uL RBC 4.03 L (4.20-5.50) X10*6/uL Hgb 12.8 (12.0-16.0) g/dl Hct 37.7 (37.0-47.0) % MCV 93.5 (80.0-98.0) fL MCH 31.8 (27.0-33.0) pg MCHC 34.0 (31.0-35.0) g/dl RDW 12.5 (11.0-16.0) % Plt Count 230 (160-400) X10*3/uL MPV 9.2 L (9.4-12.3) fL Immature Gran % (Auto) 0.2 (0.0-0.4) % Neut % (Auto) 72.3 (45-73) % Lymph % (Auto) 22.4 (20-40) % [place] % (Auto) 4.5 (2-11) % Eos % (Auto) 0.4 (0-4) % Baso % (Auto) 0.2 (0-2) % Lymph # (Auto) 1.1 L (1.2-4.9) X10*3/uL [place] # (Auto) 0.2 (0.1-1.2) X10*3/uL Eos # (Auto) 0.0 (0.0-0.4) X10*3/uL Baso # (Auto) 0.0 (0.0-0.2) X10*3/uL Abs Immat Gran (auto) 0.01 (0.00-0.03) X10*3/uL Absolute Neuts (auto) 3.7 (2.0-8.3) x10*3/uL Absolute Nucleated RBC 0.000 (0.0-0.012) X10*3/uL Nucleated RBC % (auto) 0.0 (0.0-0.2) /100WBC Sodium 139 (135-145) mmol/L Potassium 3.7 (3.3-5.1) mmol/L Chloride 106 (96-108) mmol/L Carbon Dioxide 24 (22-29) mmol/L Anion Gap 13 (12-20) BUN 11 (9-16) mg/dL Creatinine 0.66 (0.5-1.4) mg/dL Estim Creat Clear Calc 99.8 Estimated GFR > 60 Random Glucose 116 H (60-115) mg/dL Calcium 9.1 (8.4-10.2) mg/dL Magnesium 2.0 (1.6-2.6) mg/dL Total Bilirubin 0.4 (0.0-1.0) mg/dL Direct Bilirubin 0.2 (0.0-0.5) mg/dL AST 38 H (5-31) U/L ALT 48 H (0-31) U/L Alkaline Phosphatase 47 (39-117) U/L Total Protein 7.2 (6.5-8.0) g/dL Albumin 4.0 (3.5-5.0) g/dL Lipase 21 (8-78) U/L Urine Color Urine Appearance Urine pH (5.0-9.0) Ur Specific [place] (1.005-1.025) Urine Protein (Neg-Trace) mg/dL Urine Glucose (UA) (Negative) mg/dL Urine Ketones (Negative) mg/dL Urine Blood (Negative) Urine Nitrite (Negative) Ur Leukocyte Esterase (Negative) Urine Test (NEGATIVE) Urine Opiates Screen (Not Detect) Urine Fentanyl Screen (Not Detect) Ur Barbiturates Screen (Not Detect) Ur Phencyclidine Scrn (Not Detect) Ur Amphetamines Screen (Not Detect) U Benzodiazepines Scrn (Not Detect) Urine Cocaine Screen (Not Detect) U Marijuana (THC) Screen (Not Detect) Ethyl Alcohol < 10 mg/dL 08/19/22 08/19/22 08/19/22 Range/Units 00:34 00:34 00:34 WBC (4.8-10.8) X10*3/uL RBC (4.20-5.50) X10*6/uL Hgb (12.0-16.0) g/dl Hct (37.0-47.0) % MCV (80.0-98.0) fL MCH (27.0-33.0) pg MCHC (31.0-35.0) g/dl RDW (11.0-16.0) % Plt Count (160-400) X10*3/uL MPV (9.4-12.3) fL Immature Gran % (Auto) (0.0-0.4) % Neut % (Auto) (45-73) % Lymph % (Auto) (20-40) % [place] % (Auto) (2-11) % Eos % (Auto) (0-4) % Baso % (Auto) (0-2) % Lymph # (Auto) (1.2-4.9) X10*3/uL [place] # (Auto) (0.1-1.2) X10*3/uL Eos # (Auto) (0.0-0.4) X10*3/uL Baso # (Auto) (0.0-0.2) X10*3/uL Abs Immat Gran (auto) (0.00-0.03) X10*3/uL Absolute Neuts (auto) (2.0-8.3) x10*3/uL Absolute Nucleated RBC (0.0-0.012) X10*3/uL Nucleated RBC % (auto) (0.0-0.2) /100WBC Sodium (135-145) mmol/L Potassium (3.3-5.1) mmol/L Chloride (96-108) mmol/L Carbon Dioxide (22-29) mmol/L Anion Gap (12-20) BUN (9-16) mg/dL Creatinine (0.5-1.4) mg/dL Estim Creat Clear Calc Estimated GFR Random Glucose (60-115) mg/dL Calcium (8.4-10.2) mg/dL Magnesium (1.6-2.6) mg/dL Total Bilirubin (0.0-1.0) mg/dL Direct Bilirubin (0.0-0.5) mg/dL AST (5-31) U/L ALT (0-31) U/L Alkaline Phosphatase (39-117) U/L Total Protein (6.5-8.0) g/dL Albumin (3.5-5.0) g/dL Lipase (8-78) U/L Urine Color Yellow Urine Appearance Clear Urine pH 6.5 (5.0-9.0) Ur Specific [place] 1.015 (1.005-1.025) Urine Protein Negative (Neg-Trace) mg/dL Urine Glucose (UA) Negative (Negative) mg/dL Urine Ketones 15 (Negative) mg/dL Urine Blood Negative (Negative) Urine Nitrite Negative (Negative) Ur Leukocyte Esterase Negative (Negative) Urine Test NEGATIVE (NEGATIVE) Urine Opiates Screen Not Detected (Not Detect) Urine Fentanyl Screen Not Detected (Not Detect) Ur Barbiturates Screen Not Detected (Not Detect) Ur Phencyclidine Scrn Not Detected (Not Detect) Ur Amphetamines Screen POSITIVE H (Not Detect) U Benzodiazepines Scrn Not Detected (Not Detect) Urine Cocaine Screen Not Detected (Not Detect) U Marijuana (THC) Screen Not Detected (Not Detect) Ethyl Alcohol mg/dL Discharge Plan Discharge Clinical Impression: Acute onset of severe vertigo Patient Disposition: Admitted As Inpatient
[2022-08-18] MEDS: 0.9 % Sodium Chloride 1,000 ML 999 ML IVCONT (22:06)
[2022-08-18] MEDS: Meclizine HCl 25 MG TABLET 50 MG PO (22:06)
[2022-08-18] MEDS: ondansetron HCL 4 MG/2 ML VIAL IVPUSH (22:06)
[2022-08-18 22:09] LABS: MANUAL DIFF FLAG NO
[2022-08-18 22:10] LABS: Basophils Percent Auto 0.2 % (0-2); Eosinophils Percent Auto 0.4 % (0-4); Hematocrit 37.7 % (37.0-47.0); Hemoglobin 12.8 g/dl (12.0-16.0); Imm Gran Abs Auto 0.01 X10*3/uL (0.00-0.03); Imm Gran Pct Auto 0.2 % (0.0-0.4); Lymphocytes Absolute Auto 1.1 X10*3/uL (1.2-4.9); Lymphocytes Percent Auto 22.4 % (20-40); Mean Corpuscular Hemoglobin 31.8 pg (27.0-33.0); Mean Corpuscular Volume 93.5 fL (80.0-98.0); Mean Platelet Volume 9.2 fL (9.4-12.3); Monocytes Absolute Auto 0.2 X10*3/uL (0.1-1.2); Monocytes Percent Auto 4.5 % (2-11); Neutrophils Absolute Auto 3.7 x10*3/uL (2.0-8.3); Neutrophils Percent Auto 72.3 % (45-73); Platelet Count 230 X10*3/uL (160-400); Red Blood Count 4.03 X10*6/uL (4.20-5.50); Red Cell Distribution Width 12.5 % (11.0-16.0); White Blood Count 5.1 X10*3/uL (4.8-10.8)
--- NOTE | 2022-08-18 22:18 | PC.NURSE ---
pt states she was very dizzy and has been n/v mother was present when pt passed out and fell pt states she was only out for a few seconds meds administered for dizziness and nausea IV access obtained at bedside aox4 no apparent distress pt does look uncomfortable states she is still nauseous
[2022-08-18 22:22] LABS: Ethanol < 10 mg/dL
[2022-08-18 22:25] LABS: Alanine Aminotransferase 48 U/L (0-31); Alkaline Phosphatase 47 U/L (39-117); Anion Gap 13 (12-20); Aspartate Amino Transferase 38 U/L (5-31); Bilirubin Direct 0.2 mg/dL (0.0-0.5); Bilirubin Total 0.4 mg/dL (0.0-1.0); Blood Urea Nitrogen 11 mg/dL (9-16); Calcium 9.1 mg/dL (8.4-10.2); Carbon Dioxide 24 mmol/L (22-29); Chloride 106 mmol/L (96-108); Creatinine Clr Calc Pharmacy 99.8; Estimated Glomerular Filt Rate > 60; Glucose Random 116 mg/dL (60-115); Lipase 21 U/L (8-78); Potassium 3.7 mmol/L (3.3-5.1); Sodium 139 mmol/L (135-145); Total Protein 7.2 g/dL (6.5-8.0)
[2022-08-19] MEDS: LORazepam 2 MG/ML VIAL 1 MG IVPUSH (00:44)
[2022-08-19 00:53] LABS: Appearance Urine Clear; Color Urine Yellow; Glucose Urine UA Negative (Negative); Leukocyte Esterase Urine Negative (Negative); Nitrite Urine Negative (Negative); PH 6.5 (5.0-9.0); Specific Gravity - Urine 1.015 (1.005-1.025); Urine Blood Negative (Negative); Urine Ketones 15 mg/dL (Negative); Urine Protein Negative (Neg-Trace)
[2022-08-19 00:54] LABS: UPreg QC Valid YES; Urine Pregnancy NEGATIVE (NEGATIVE)
[2022-08-19 01:05] LABS: Amphetamine Screen Urine POSITIVE (Not Detect); Barbiturates, Urine Not Detected (Not Detect); Benzodiazepines Screen Urine Not Detected (Not Detect); Cannabinoid Screen Urine Not Detected (Not Detect); Cocaine Screen Urine Not Detected (Not Detect); Fentanyl, urine Not Detected (Not Detect); Opiate Screen Urine Not Detected (Not Detect); Phencyclidine Screen Urine Not Detected (Not Detect)
--- NOTE | 2022-08-19 02:13 | PC.NURSE ---
pt sleeping respirations even and unlabored no apparent distress
[2022-08-19 02:35] VITALS: BP 110/75; PULSE 90; RESP 16; TEMP 36.8; O2SAT 99
--- NOTE | 2022-08-19 03:57 | P.HPHOSP_ITS ---
History of Present Illness Date of Service: 08/19/22 Chief Complaint: Vertigo This is a 32-year-old female with pertinent history of ADHD on Adderall who presents to the emergency department for evaluation of sudden-onset vertigo. Patient states it started at 16:00 when she was laying on the couch. Patient had sudden onset of vertigo with sensation of the room spinning and had 3 has episodes of associated nausea and nonbloody emesis. It was persistent and hence she presented to the ER. No history of similar complaints in the past. No ringing of ear or hearing changes. No headache, fever chills. Patient does think that the vertigo is worse when she tries to move her head. Does report imbalance upon walking. Patient denies chest discomfort, palpitations, shortness of breath, abdominal pain, changes in urinary or bowel habits. In the emergency department, patient with persistent vertigo even with meclizine. Review of Systems Constitutional: Constitutional: Reports no additional constitutional complaints ENT: Reports vertigo Cardiovascular: Cardiovascular: Reports no additional cardiovascular complaints Respiratory: Respiratory: Reports no additional respiratory complaints Gastrointestinal: Gastrointestinal: Reports no additional gastrointestinal complaints Genitourinary: Genitourinary: Reports no additional female genitourinary complaints Neurologic: Reports vertigo PMFSH Medical History ADHD Pertinent family history: No family history of early CAD Social History Alcohol intake: never Smoked in Last 30 Days: No Use of substances other than those prescribed or required for medical reasons: No Advance Directives: No Advance Directives Information Provided: No Patient : No Meds Allergies Allergy/AdvReac Type Severity Reaction Status Date / Time Sulfa (Sulfonamide Allergy Unknown THROAT Verified 08/18/22 22:05 Antibiotics) COSES [SULFA (SULFONAMIDE ANTIBIOTICS)] codeine AdvReac Hypotension Verified 08/18/22 22:05 Physical Exam Vital Signs and Narrative: Vital Signs: Last Vital Signs Temp 98.2 F 08/19/22 02:35 Pulse 90 08/19/22 02:35 Resp 16 08/19/22 02:35 BP 110/75 08/19/22 02:35 Pulse Ox 99 08/19/22 02:35 O2 Del Method Room Air 08/19/22 02:35 BMI result Body Mass Index 19.7 Middle-aged female lying in bed in no distress Neck supple, no JVD Regular rate and rhythm, S1-S2 heard Regular breath sounds bilaterally, no wheezing or crackles appreciated Abdomen soft nontender, no guarding, no rigidity Patient is awake, alert and oriented to self, place, time and person ; no focal motor deficit, head impulse test negative, horizontal nystagmus present Psych: Normal mood No pedal edema Results Labs 08/18/22 22:02 08/18/22 22:02 Labs: Laboratory Results - last 24 hr 08/18/22 08/18/22 08/18/22 22:02 22:02 22:02 MCV 93.5 MCH 31.8 MCHC 34.0 RDW 12.5 Plt Count 230 MPV 9.2 L Immature Gran % (Auto) 0.2 Neut % (Auto) 72.3 Lymph % (Auto) 22.4 [place] % (Auto) 4.5 Eos % (Auto) 0.4 Baso % (Auto) 0.2 Lymph # (Auto) 1.1 L [place] # (Auto) 0.2 Eos # (Auto) 0.0 Baso # (Auto) 0.0 Abs Immat Gran (auto) 0.01 Absolute Neuts (auto) 3.7 Absolute Nucleated RBC 0.000 Nucleated RBC % (auto) 0.0 Anion Gap 13 Estim Creat Clear Calc 99.8 Estimated GFR > 60 Random Glucose 116 H Calcium 9.1 Magnesium 2.0 Total Bilirubin 0.4 Direct Bilirubin 0.2 AST 38 H ALT 48 H Alkaline Phosphatase 47 Total Protein 7.2 Albumin 4.0 Lipase 21 Urine Color Urine Appearance Urine pH Ur Specific [place] Urine Protein Urine Glucose (UA) Urine Ketones Urine Blood Urine Nitrite Ur Leukocyte Esterase Urine Test Urine Opiates Screen Urine Fentanyl Screen Ur Barbiturates Screen Ur Phencyclidine Scrn Ur Amphetamines Screen U Benzodiazepines Scrn Urine Cocaine Screen U Marijuana (THC) Screen Ethyl Alcohol < 10 08/19/22 08/19/22 08/19/22 00:34 00:34 00:34 MCV MCH MCHC RDW Plt Count MPV Immature Gran % (Auto) Neut % (Auto) Lymph % (Auto) [place] % (Auto) Eos % (Auto) Baso % (Auto) Lymph # (Auto) [place] # (Auto) Eos # (Auto) Baso # (Auto) Abs Immat Gran (auto) Absolute Neuts (auto) Absolute Nucleated RBC Nucleated RBC % (auto) Anion Gap Estim Creat Clear Calc Estimated GFR Random Glucose Calcium Magnesium Total Bilirubin Direct Bilirubin AST ALT Alkaline Phosphatase Total Protein Albumin Lipase Urine Color Yellow Urine Appearance Clear Urine pH 6.5 Ur Specific [place] 1.015 Urine Protein Negative Urine Glucose (UA) Negative Urine Ketones 15 Urine Blood Negative Urine Nitrite Negative Ur Leukocyte Esterase Negative Urine Test NEGATIVE Urine Opiates Screen Not Detected Urine Fentanyl Screen Not Detected Ur Barbiturates Screen Not Detected Ur Phencyclidine Scrn Not Detected Ur Amphetamines Screen POSITIVE H U Benzodiazepines Scrn Not Detected Urine Cocaine Screen Not Detected U Marijuana (THC) Screen Not Detected Ethyl Alcohol Imaging Radiologist's Impressions: Impressions Head CT 08/19/22 02:20 IMPRESSION: No acute intracranial pathology. Assessment and Plan (1) Acute onset of severe vertigo: Status: Acute Plan This is a 32-year-old female with pertinent history of ADHD on Adderall who presents to the emergency department for evaluation of sudden-onset vertigo. #. Acute sudden-onset vertigo: Will obtain MRI to rule out a central etiology. Symptomatic treatment p.r.n. #. ADHD on Adderall Med rec pending DVT prophylaxis: None Full code Regular diet Time Spent With Patient Time: Total time managing care of this patient today ____ minutes. Quality Stroke Does the patient have a stroke diagnosis?: No VTE Prior VTE?: No VTE Risk Level:: Medical - low VTE Device Contraindication: Treatment Not Indicated VTE Drug Contraindication: Treatment Not Indicated
--- NOTE | 2022-08-19 05:33 | PC.NURSE ---
N2N report given to Alberto Dennis Pt to rm [id number]
--- NOTE | 2022-08-19 05:34 | PC.NURSE ---
pt aox4, no apparent distress
[2022-08-19 06:41] LABS: MANUAL DIFF FLAG NO
[2022-08-19 06:56] LABS: Basophils Percent Auto 0.6 % (0-2); Eosinophils Percent Auto 0.6 % (0-4); Hematocrit 37.5 % (37.0-47.0); Hemoglobin 12.9 g/dl (12.0-16.0); Imm Gran Abs Auto 0.01 X10*3/uL (0.00-0.03); Imm Gran Pct Auto 0.3 % (0.0-0.4); Lymphocytes Absolute Auto 1.5 X10*3/uL (1.2-4.9); Lymphocytes Percent Auto 40.3 % (20-40); Mean Corpuscular HGB Conc 34.4 g/dl (31.0-35.0); Mean Corpuscular Hemoglobin 32.3 pg (27.0-33.0); Mean Corpuscular Volume 93.8 fL (80.0-98.0); Mean Platelet Volume 9.4 fL (9.4-12.3); Monocytes Absolute Auto 0.4 X10*3/uL (0.1-1.2); Monocytes Percent Auto 9.9 % (2-11); Neutrophils Absolute Auto 1.8 x10*3/uL (2.0-8.3); Neutrophils Percent Auto 48.3 % (45-73); Platelet Count 207 X10*3/uL (160-400); Red Cell Distribution Width 12.6 % (11.0-16.0); White Blood Count 3.6 X10*3/uL (4.8-10.8)
[2022-08-19 07:11] LABS: Anion Gap 11 (12-20); Blood Urea Nitrogen 7 mg/dL (9-16); Calcium 8.6 mg/dL (8.4-10.2); Carbon Dioxide 23 mmol/L (22-29); Chloride 109 mmol/L (96-108); Creatinine Clr Calc Pharmacy 109.8; Estimated Glomerular Filt Rate > 60; Glucose Random 83 mg/dL (60-115); Potassium 3.8 mmol/L (3.3-5.1); Sodium 139 mmol/L (135-145)
[2022-08-19 07:27] VITALS: BP 117/83; PULSE 79; RESP 20; TEMP 36.6; O2SAT 100
[2022-08-19] MEDS: 0.9 % Sodium Chloride Flush 3 ML SYRINGE IVFLUSH ×3 (07:27→21:05)
--- NOTE | 2022-08-19 08:06 | PHA.MEDREC ---
Pharmacy Consult ? Medication Reconciliation Pharmacy has completed the medication reconciliation.
[2022-08-19] MEDS: Meclizine HCl 25 MG TABLET PO (12:14)
--- NOTE | 2022-08-19 12:37 | PM.EVENT ---
Event Note Date of Service: 08/19/22 Event Note: 32-year-old female with pertinent history of ADHD on Adderall who presents to the emergency department for evaluation of sudden-onset vertigo.? Patient states it started at 16:00 when she was laying on the couch.? Patient had sudden onset of vertigo with sensation of the room spinning and had 3 has episodes of associated nausea and nonbloody emesis.? It was persistent and hence she presented to the ER.? No history of similar complaints in the past.? No ringing of ear or hearing changes.? No headache, fever chills.? Patient does think that the vertigo is worse when she tries to move her head.? Does report imbalance upon walking.? Patient denies chest discomfort, palpitations, shortness of breath, abdominal pain, changes in urinary or bowel habits. In the emergency department, patient with persistent vertigo even with meclizine. On exam awake alert Eyes persistent horizontal nystagmus with fast component to left No facial tenderness Lungs clear 32-year-old female with pertinent history of ADHD on Adderall who presents to the emergency department for evaluation of sudden-onset vertigo. #.? Acute sudden-onset vertigo:? pesistent dizziness worse with change in position associated with nausea, no URI symptoms, no similar symptoms in the past, MRI brain showed no acute bleeds or infarcts. No masses are demonstrated.Brain parenchymal signal is unremarkable. cont meclizine/PT eval for vestibular rehab #.? ADHD resume Adderall Time Spent With Patient Time: Total time managing care of this patient today ____ minutes.
--- NOTE | 2022-08-19 15:26 | MHC.CM.PN ---
PATIENT IS FULLY INDEPENDENT NO DME OR [facility] SISTER IS IN ROOM AND WILL PROVIDE TRANSPORT HOME TOMORROW IF NEEDED. PLAN IS DC HOME SATURDAY AFTER VESTIBULAR REHAB EVAL. CUELLO 08/19 IN CHART
[2022-08-19 16:07] VITALS: BP 107/71; PULSE 78; RESP 20; TEMP 36.8; O2SAT 99
[2022-08-19 19:15] VITALS: BP 105/62; PULSE 90; RESP 16; TEMP 36.2; O2SAT 96
[2022-08-20 07:08] VITALS: BP 110/71; PULSE 70; RESP 16; TEMP 36.1; O2SAT 99
[2022-08-20] MEDS: 0.9 % Sodium Chloride Flush 3 ML SYRINGE IVFLUSH (09:01)
[2022-08-20] MEDS: Cyanocobalamin (Vitamin B-12) 1,000 MCG TABLET 1000 MCG PO (09:01)
[2022-08-20] MEDS: ondansetron HCL 4 MG/2 ML VIAL IVPUSH (10:36)
[2022-08-20] MEDS: Meclizine HCl 25 MG TABLET PO (10:36)
--- NOTE | 2022-08-20 11:15 | PM.DS ---
DS: Providers Provider Date of Service: 08/20/22 Date of admission: 08/19/22 03:54 Date of discharge: 08/20/22 Primary care physician: Tierra Vogel NP DS: Diagnosis Discharge Diagnosis (1) Acute onset of severe vertigo: Status: Acute (2) BPPV (benign paroxysmal positional vertigo): Status: Acute DS: Summary Hospital Course Hospital Course: from admission H+P by hospitalist Claudine Mays, 08/19/22: This is a 32-year-old female with pertinent history of ADHD on Adderall who presents to the emergency department for evaluation of sudden-onset vertigo.? Patient states it started at 16:00 when she was laying on the couch.? Patient had sudden onset of vertigo with sensation of the room spinning and had 3 has episodes of associated nausea and nonbloody emesis.? It was persistent and hence she presented to the ER.? No history of similar complaints in the past.? No ringing of ear or hearing changes.? No headache, fever chills.? Patient does think that the vertigo is worse when she tries to move her head.? Does report imbalance upon walking.? Patient denies chest discomfort, palpitations, shortness of breath, abdominal pain, changes in urinary or bowel habits. In the emergency department, patient with persistent vertigo even with meclizine. She was admitted to the medical-surgical floor under observation. MRI was negative for any pathology. She was seen by vestibular PT and was able to walk without an assistive device. She had some improvement with vestibular therapy and outpatient therapy was recommended. Meclizine prescription was provided. Time Spent with Patient Time attestation: Total time managing care of this patient today ___25_ minutes. Discharge coordination time: Less than 30 minutes Quality: Safe Use of Opioids Does Pt have an Active Cancer Diagnosis on the Problem List?: No Quality: Stroke Does the patient have a stroke diagnosis?: No Physical Exam Vital Signs: Vital Signs: Last Vital Signs Temp 97 F 08/20/22 07:08 Pulse 70 08/20/22 07:08 Resp 16 08/20/22 07:08 BP 110/71 08/20/22 07:08 Pulse Ox 99 08/20/22 07:08 O2 Del Method Room Air 08/20/22 07:08 BMI result Body Mass Index 19.7 Gen: in no acute distress HEENT: sclera anicteric, moist mucus membranes Neck: supple Lungs: clear to auscultation bilaterally Heart: regular rate and rhythm, no murmurs Abd: soft, non-tender, non-distended Ext: no edema Skin: warm/well-perfused Neuro: alert and oriented x3, horizontal nystagmus Psych: appropriate affect DS: Data Data Completed and Pending Completed studies during hospitalization [Text1]: Laboratory Results WBC 3.6 X10*3/uL (4.8-10.8) L 08/19/22 06:34 RBC 4.00 X10*6/uL (4.20-5.50) L 08/19/22 06:34 Hgb 12.9 g/dl (12.0-16.0) 08/19/22 06:34 Hct 37.5 % (37.0-47.0) 08/19/22 06:34 MCV 93.8 fL (80.0-98.0) 08/19/22 06:34 MCH 32.3 pg (27.0-33.0) 08/19/22 06:34 MCHC 34.4 g/dl (31.0-35.0) 08/19/22 06:34 RDW 12.6 % (11.0-16.0) 08/19/22 06:34 Plt Count 207 X10*3/uL (160-400) 08/19/22 06:34 MPV 9.4 fL (9.4-12.3) 08/19/22 06:34 Immature Gran % (Auto) 0.3 % (0.0-0.4) 08/19/22 06:34 Neut % (Auto) 48.3 % (45-73) 08/19/22 06:34 Lymph % (Auto) 40.3 % (20-40) H 08/19/22 06:34 Murray % (Auto) 9.9 % (2-11) 08/19/22 06:34 Eos % (Auto) 0.6 % (0-4) 08/19/22 06:34 Baso % (Auto) 0.6 % (0-2) 08/19/22 06:34 Lymph # (Auto) 1.5 X10*3/uL (1.2-4.9) 08/19/22 06:34 Murray # (Auto) 0.4 X10*3/uL (0.1-1.2) 08/19/22 06:34 Eos # (Auto) 0.0 X10*3/uL (0.0-0.4) 08/19/22 06:34 Baso # (Auto) 0.0 X10*3/uL (0.0-0.2) 08/19/22 06:34 Abs Immat Gran (auto) 0.01 X10*3/uL (0.00-0.03) 08/19/22 06:34 Absolute Neuts (auto) 1.8 x10*3/uL (2.0-8.3) L 08/19/22 06:34 Absolute Nucleated RBC 0.000 X10*3/uL (0.0-0.012) 08/19/22 06:34 Nucleated RBC % (auto) 0.0 /100WBC (0.0-0.2) 08/19/22 06:34 Sodium 139 mmol/L (135-145) 08/19/22 06:34 Potassium 3.8 mmol/L (3.3-5.1) 08/19/22 06:34 Chloride 109 mmol/L (96-108) H 08/19/22 06:34 Carbon Dioxide 23 mmol/L (22-29) 08/19/22 06:34 Anion Gap 11 (12-20) L 08/19/22 06:34 BUN 7 mg/dL (9-16) L 08/19/22 06:34 Creatinine 0.60 mg/dL (0.5-1.4) 08/19/22 06:34 Estim Creat Clear Calc 109.8 08/19/22 06:34 Estimated GFR > 60 08/19/22 06:34 Random Glucose 83 mg/dL (60-115) 08/19/22 06:34 Calcium 8.6 mg/dL (8.4-10.2) 08/19/22 06:34 Magnesium 2.0 mg/dL (1.6-2.6) 08/18/22 22:02 Total Bilirubin 0.4 mg/dL (0.0-1.0) 08/18/22 22:02 Direct Bilirubin 0.2 mg/dL (0.0-0.5) 08/18/22 22:02 AST 38 U/L (5-31) H 08/18/22 22:02 ALT 48 U/L (0-31) H 08/18/22 22:02 Alkaline Phosphatase 47 U/L (39-117) 08/18/22 22:02 Total Protein 7.2 g/dL (6.5-8.0) 08/18/22 22:02 Albumin 4.0 g/dL (3.5-5.0) 08/18/22 22:02 Lipase 21 U/L (8-78) 08/18/22 22:02 Urine Color Yellow 08/19/22 00:34 Urine Appearance Clear 08/19/22 00:34 Urine pH 6.5 (5.0-9.0) 08/19/22 00:34 Ur Specific [place] 1.015 (1.005-1.025) 08/19/22 00:34 Urine Protein Negative mg/dL (Neg-Trace) 08/19/22 00:34 Urine Glucose (UA) Negative mg/dL (Negative) 08/19/22 00:34 Urine Ketones 15 mg/dL (Negative) 08/19/22 00:34 Urine Blood Negative (Negative) 08/19/22 00:34 Urine Nitrite Negative (Negative) 08/19/22 00:34 Ur Leukocyte Esterase Negative (Negative) 08/19/22 00:34 Urine Test NEGATIVE (NEGATIVE) 08/19/22 00:34 Urine Opiates Screen Not Detected (Not Detect) 08/19/22 00:34 Urine Fentanyl Screen Not Detected (Not Detect) 08/19/22 00:34 Ur Barbiturates Screen Not Detected (Not Detect) 08/19/22 00:34 Ur Phencyclidine Scrn Not Detected (Not Detect) 08/19/22 00:34 Ur Amphetamines Screen POSITIVE (Not Detect) H 08/19/22 00:34 U Benzodiazepines Scrn Not Detected (Not Detect) 08/19/22 00:34 Urine Cocaine Screen Not Detected (Not Detect) 08/19/22 00:34 U Marijuana (THC) Screen Not Detected (Not Detect) 08/19/22 00:34 Ethyl Alcohol < 10 mg/dL 08/18/22 22:[address] 08/19/22 02:20 IMPRESSION: No acute intracranial pathology. Brain MRI 08/19/22 10:58 IMPRESSION: 1. There are no acute bleeds or infarcts. No masses are demonstrated. Brain parenchymal signal is unremarkable. Discharge Plan Discharge Anticipated Discharge Date/Time: 08/20/22 11:08 Patient Disposition: Home, Self-Care Referrals: [place] - [facility] [place] - 3-5 Days (Vestibular rehabilitation ) Tierra Vogel, ARCHAEOLOGY PROFESSOR [Primary Care Provider] - 1 Week Discharge Medications: New meclizine 25 mg Tablet 25 mg PO Q6H PRN (Reason: vertigo) Qty: 30 0RF Continued desogestrel-ethinyl estradiol [Apri] 0.15-0.03 mg tablet 1 tab PO DAILY valacyclovir 1 gram tablet 1,000 mg PO DAILY PRN (Reason: [place]) cyanocobalamin (vitamin B-12) 1,000 mcg tablet 1,000 mcg PO DAILY dextroamphetamine-amphetamine [Adderall XR] 25 mg capsule,extended release 24hr 1 cap PO DAILY Discharge Orders: Discharge Order (Routine); Ordered 08/20/22 Ordered By: Ash Hendrix Diet: Advance to usual diet Activity on Discharge: As tolerated Stand Alone Forms: Patient Portal Discharge page Care Plan Goals: resolve vertigo Health Concerns: benign positional peripheral vertigo Plan of Treatment: meclizine as needed for vertigo vestibular physical therapy: Physical Therapy services are available at: [address] [address] ?[phone] Please follow up with your primary care doctor within 1 week. Return to the hospital if you experience recurrent or worsening symptoms. Assessment: See Discharge Summary.
--- NOTE | 2022-08-20 12:56 | MHC.CM.PN ---
CUATE 08/19/22 Female 32 DX Vertigo. Patient is discharged to home today selfcare. She has arranged for transportation home.
== END 2022-08-20 13:01 | disposition home or self-care (01) ==
LOC: HO.ED 08-19 01:52 → HO.EDOVER 08-19 03:59 → HO.S3 08-19 04:29
PROVIDERS: Physician Assistant Medical; Admitting Provider Student in an Organized Health Care Education/Training Program; Emergency Provider Internal Medicine; PCP Nurse Practitioner Family; Visit Provider Family Medicine
DX: H81.10 Benign paroxysmal vertigo, unspecified ear (principal); F90.9 Attention-deficit hyperactivity disorder, unspecified type; R11.2 Nausea with vomiting, unspecified
CPT/HCPCS: 36415; 70450; 70551; 80048; 80076; 80307; 81003; 81025; 82077; 83690; 83735; 85025; 93005; 96361; 96374; 96375; 97161; 99221; 99285; J2060; J2405

== ENCOUNTER 2023-04-08 11:48 | Outpatient (AMB) | payer OTHER, SELFPAY ==
[2023-04-08 13:43] VITALS: BP 110/66; PULSE 80; TEMP 36.2; O2SAT 99; BMI 21.6
--- NOTE | 2023-04-08 13:43 | MHC.OFFWIV ---
Intake Vital Signs 04/08/23 13:43 Height 5 ft 3 in Weight 122 lb BMI 21.6 BP 110/66 Blood Pressure Location Rt brachial Position Sitting Pulse 80 Pulse Source Pulse Oximeter Temp 97.2 F Temp Source Temporal Artery Scan Pulse Oximetry (%) 99 Oxygen Delivery Method Room Air Intake Visit Reasons: [employer], chest congestion, left ear pain ([phone]) Intake Note: pt is here for c.o chest congestion, left ear pain green phlem Patient Tobacco Use Status: Never used Tobacco Allergies Sulfa (Sulfonamide Antibiotics) [SULFA (SULFONAMIDE ANTIBIOTICS)] Allergy (Unknown, Verified 04/08/23 13:43) THROAT COSES codeine Adverse Reaction (Verified 04/08/23 13:43) Hypotension Do you need a note to return to daycare/school/sports/work: Yes HPI HPI Comments History of Present Illness Details Patient presents to the walk-in clinic today for sick visit. She complains of 3 days cough, sinus congestion and left ear pain. Denies known fever, denies shortness of breath, chest pain, nausea, vomiting or diarrhea. Denies known sick visit. [facility] Medical History (Updated 04/08/23 @ 14:27 by Roseanne Sun APRN, IS TECHNICIAN) Otitis media BPPV (benign paroxysmal positional vertigo) ADHD Social History Alcohol intake: never Comment: S3 Patient Tobacco Use Status: Never used Tobacco service: No Current occupational status: employed Review of Systems Const All systems reviewed & are unremarkable except as noted in HPI and below Physical Exam Vital Signs: Last Vital Signs Temp 97.2 F 04/08/23 13:43 Pulse 80 04/08/23 13:43 BP 110/66 04/08/23 13:43 Pulse Ox 99 04/08/23 13:43 Oxygen Delivery Method Room Air 04/08/23 13:43 BMI result Body Mass Index 21.6 General: awake, alert, oriented. Answers questions appropriately. Fully engaged in examination. Skin: warm, dry, intact HEENT: TMs intact bilaterally. opacification and bulging noted left TM. Posterior pharynx without erythema or exudate. Sclera without icterus or injection. Cardiac: External chest normal in appearance. Respiratory: +cough. LSCTAB. Abdomen: without gross distension. Neurological: Oriented to person, place, time and situation. Thought process intact. Psychiatric: Appropriate mood and affect. Good judgment and insight. Assessment & Plan Assessment & Plan (1) Otitis media: Code(s): H66.90 - Otitis media, unspecified, unspecified ear Plan Otitis media, left. Augmentin 875.125 mg po BID X5 days. take with food. Benzonatate 100mg po bid as needed Rest, drink plenty of fluids, tylenol or motrin as needed. Recommend taking OTC nasal decongestants or flonase. Follow up with pcp or in clinic for any new or worsening symptoms. Go to ER for shortness of breath, chest pain, palpitations, weakness, dizziness. Medications: New benzonatate 100 mg PO BID PRN 20 caps 0RF cough amoxicillin-pot clavulanate 875-125 mg 1 tab PO Q12H 5 days 10 tabs 0RF Coding Level of Care Code Est Pt Level 3 (81599) Diagnoses Otitis media H66.90
== END 2023-04-08 14:21 | disposition home or self-care (01) ==
PROVIDERS: PCP Nurse Practitioner Family; Visit Provider Registered Nurse Emergency
DX: H66.90 Otitis media, unspecified, unspecified ear (principal)
CPT/HCPCS: 99213